=== PATIENT | male | born 1985 | race Caucasian/White ===

== ENCOUNTER 2017-12-23 19:43 | Emergency (ER) | payer OTHER ==
[2017-12-23 19:49] VITALS: BMI 25.0
--- NOTE | 2017-12-23 19:49 | PDOC ---
Rapid Medical Evaluation Chief Complaint: Nausea/Vomiting Time Seen by Provider: 12/23/17 19:45 Medical Evaluation: Allergies Allergy/AdvReac Type Severity Reaction Status Date / Time No Known Allergies Allergy Verified 07/22/16 08:13 I have performed a brief in-person evaluation of this patient. The patient presents with a chief complaint of: sore throat, vomiting, diarrhea since this morning. Pertinent physical exam findings: none I have ordered the following: rapid strep, influenza The patient will proceed to the ED for further evaluation.
--- NOTE | 2017-12-23 20:23 | PDOC ---
History of Present Illness - General History Source: Patient Exam Limitations: No Limitations - History of Present Illness Initial Comments: 12/23/17 21:13 The patient is a 32 year old male with no significant PMH who presents to the emergency department complaining of constant episodes of nausea and vomiting today. The patient reports that he first began to feel an onset of a sore throat earlier today accompanied by vomiting, diarrhea, and stomach pain. The patient works as a manager of construction and reports that he was at work earlier today when he started to experience these symptoms. The patient reports associated subjective fever,ear pain and, productive cough . The patient reports that he took ibuprofen about 3 hours ago in an attempt to alleviate his symptoms. The patient reports that he feels weak. The patient denies any chest pain, shortness of breath, or headache . The patient denies any chills. The patient denies any urinary symptoms. The patient denies any other complaints. <Melony Corral - Last Filed: 12/23/17 21:13> <Lizbeth Waite - Last Filed: 12/24/17 15:49> - General Chief Complaint: Nausea/Vomiting Stated Complaint: fever/sorethroat/diarrhea/vomiting Time Seen by Provider: 12/23/17 19:45 Past History <Melony Corral - Last Filed: 12/23/17 21:13> - Past Medical History COPD: No Psychiatric Problems: Yes (anxiety and panic attacks.) - Suicide/Smoking/Psychosocial Hx Smoking Status: No Smoking History: Never smoked Have you smoked in the past 12 months: Yes Number of Cigarettes Smoked Daily: 5 Information on smoking cessation initiated: No Hx Alcohol Use: No Drug/Substance Use Hx: No Substance Use Type: None <Lizbeth Waite - Last Filed: 12/24/17 15:49> - Past Medical History Allergies/Adverse Reactions: Allergies Allergy/AdvReac Type Severity Reaction Status Date / Time No Known Allergies Allergy Verified 12/23/17 19:49 Home Medications: Ambulatory Orders NK [No Known Home Medication] 07/22/16 Review of Systems - Review of Systems Able to Perform ROS?: Yes Comments:: 12/23/17 21:13 General: (+)fever, weakness. No chills. No weight loss HEENT: (+)sore throat, ear pain. No change in vision. CardioVascular: No chest pain or shortness of breath Respiratory:(+)cough. No wheezing. Gastrointestinal: (+)nausea,vomiting, diarrhea, epigastric pain. No constipation, No rectal bleeding Genitourinary: No dysuria, hematuria, or frequency Musculoskeletal: No joint or muscle pain or swelling Neurologic: No headache, vertigo, dizziness or loss of consciousness Psychiatric: nor depression Skin: No rashes or easy bruising Endocrine: no increased thirst or abnormal weight change Allergic: no skin or latex allergy All other systems reviewed and normal <Melony Corral - Last Filed: 12/23/17 21:13> *Physical Exam - Vital Signs Last Vital Signs Temp Pulse Resp BP Pulse Ox 98.7 F 94 H 16 123/76 100 12/23/17 19:46 12/23/17 19:46 12/23/17 19:46 12/23/17 19:46 12/23/17 19:46 - Physical Exam Comments: 12/23/17 21:13 General: Well-nourished well-developed individual, no acute distress HEENT: Throat: (+)vesicles on top of palate. Tonsils normal, no erythema or exudate Neck: Supple, no meningeal signs, no lymphadenopathy Eyes::(+)Conjunctivitis. Pupils equal reactive and round, extraocular motion intact Chest: Nontender to palpation Cardiac: S1-S2 normal, regular rate and rhythm, no murmurs rubs or gallops Respiratory: Lungs clear to auscultation bilateral Abdomen: (+)epigastric tenderness with pain on palpation of right lower quadrant. Soft, nondistended, normal bowel sounds. Extremities: Warm, dry, no cyanosis, clubbing, or edema Skin: No rashes Neuro: Alert and oriented x3, nonfocal exam, grossly intact, normal gait Psych: Normal mood and affect <Melony Corral - Last Filed: 12/23/17 21:13> - Vital Signs Last Vital Signs Temp Pulse Resp BP Pulse Ox 98.7 F 94 H 16 123/76 100 12/23/17 19:46 12/23/17 19:46 12/23/17 19:46 12/23/17 19:46 12/23/17 19:46 <Lizbeth Waite - Last Filed: 12/24/17 15:49> ED Treatment Course - ADDITIONAL ORDERS Additional order review: 12/23/17 19:50 Influenza Types A,B Antigen (SHARON) - Final Nasopharyngeal Swab - Final 12/23/17 19:50 Group A Strep Rapid Antigen - Final Throat <Melony Corral - Last Filed: 12/23/17 21:13> - LABORATORY CBC & Chemistry Diagram: 12/23/17 21:00 12/23/17 21:00 - ADDITIONAL ORDERS Additional order review: 12/23/17 19:50 Group A Strep Rapid Antigen - Final Throat <Lizbeth Waite - Last Filed: 12/24/17 15:49> Medical Decision Making - Medical Decision Making 12/23/17 22:20 A portion of this note was documented by scribe services under my direction. I have reviewed the details of the note, within reason, and agree with the documentation with the following case summary and management plan written by me. Patient is a 32-year-old male with no past medical history presenting department today with 1 day of fever, vomiting, sore throat. On exam patient with epigastric pain as well as right lower quadrant pain, positive obturator and psoas signs. Palate of the mouth also with vesicular like lesions. Rapid strep and flu are negative at this time. Patient will require IV fluids, labs, anti-emetics and further workup for his abdominal pain. We'll transfer from fast track to maintain ED at this time. Patient is stable for transfer. Case discussed with LILY Merida and charge nurse Reza. <Lizbeth Waite - Last Filed: 12/24/17 15:49> *DC/Admit/Observation/Transfer - Attestations Scribe Attestion: 12/23/17 21:14 Documentation prepared by Melony Corral, acting as medical billing coordinator for Emergency Dept,PhysicianMD. <Melony Corral - Last Filed: 12/23/17 21:13> <Lizbeth Waite - Last Filed: 12/24/17 15:49> Diagnosis at time of Disposition: Abdominal pain Qualifiers: Abdominal location: unspecified location Qualified Code(s): R10.9 - Unspecified abdominal pain - Discharge Dispostion Disposition: HOME Condition at time of disposition: Stable - Referrals Referrals: Danielle Cat MD [Primary Care Provider] - Ollie Beal MD [Staff Physician] - Ankur Bella MD, MD [Staff Physician] - - Patient Instructions Printed Discharge Instructions: DI for Abdominal Pain-Adult Additional Instructions: You must follow-up with a mayonnaise mixer. Your CAT scan of the abdomen and pelvis shows small bilateral lower lobe marked nodules are nonspecific but granulomatous disease and metastases of both consider comparison to a prior exam is recommended to evaluate for stability. You must also follow with her compugraph operator for your stomach pain Return back to the ER for severe/persistent or worsening symptoms - Post Discharge Activity Forms/Work/School Notes: Back to Work
[2017-12-23] MEDS ORDERED: SODIUM CHLORIDE 1,000 ML IV STA (20:52)
[2017-12-23] MEDS ORDERED: ONDANSETRON 4 MG/2 ML VIAL IVPUSH ONE (21:12)
[2017-12-23] MEDS ORDERED: ONDANSETRON 4 MG/2 ML VIAL ONE (21:15)
[2017-12-23 21:40] LABS: BASO % 0.1 % (0-2.0); EOS % 3.4 % (0-4.5); HEMATOCRIT 40.6 % (35.4-49); HEMOGLOBIN 14.5 GM/dL (11.7-16.9); LYMPH % 14.5 % (8-40); MCH 31.3 pg (25.7-33.7); MCHC 35.7 g/dl (32.0-35.9); MEAN CELL VOLUME 87.5 fl (80-96); MEAN PLT VOLUME 8.8 fl (7.5-11.1); MONO % 7.3 % (3.8-10.2); NEUT % 74.7 % (42.8-82.8); PLATELET COUNT 49 K/MM3 (134-434); RBC 4.64 M/mm3 (4.00-5.60); RDW 13.8 % (11.9-15.9); WHITE BLOOD COUNT 7.1 K/mm3 (4.0-10.0)
[2017-12-23 21:51] LABS: INR 1.07 (0.82-1.09); PROTHROMBIN TIME (PATIENT) 12.1 SEC (9.7-13.0)
[2017-12-23 21:54] LABS: URINE APPEARANCE CLEAR; URINE BILIRUBIN NEGATIVE (<2.0 mg/dL); URINE BLOOD 2+ (NEGATIVE); URINE COLOR YELLOW; URINE GLUCOSE (UA) NEGATIVE (NEGATIVE); URINE KETONE TRACE (NEGATIVE); URINE LEUK ESTERASE NEGATIVE (NEGATIVE); URINE NITRITE NEGATIVE (NEGATIVE); URINE PROTEIN NEGATIVE (NEGATIVE); URINE UROBILINOGEN NEGATIVE mg/dL (0.2-1.0)
[2017-12-23 22:05] LABS: ALBUMIN 3.8 g/dl (3.4-5.0); ALK PHOS 113 U/L (45-117); ANION GAP 6 (8-16); BLOOD UREA NITROGEN 16 mg/dL (7-18); CALCIUM 8.2 mg/dL (8.5-10.1); CHLORIDE 104 mmol/L (98-107); CO2 25 mmol/L (21-32); CREATININE 0.8 mg/dL (0.7-1.3); GLUCOSE,RANDOM 85 mg/dL (74-106); POTASSIUM 3.9 mmol/L (3.5-5.1); SGOT/AST 22 U/L (15-37); SGPT/ALT 22 U/L (12-78); SODIUM 135 mmol/L (136-145); TOT PROT 8.8 g/dl (6.4-8.2)
--- NOTE | 2017-12-23 22:10 | PDOC ---
History of Present Illness - General Chief Complaint: Nausea/Vomiting Stated Complaint: fever/sorethroat/diarrhea/vomiting Time Seen by Provider: 12/23/17 19:45 History Source: Patient - History of Present Illness Initial Comments: 12/23/17 22:09 Best Contact:[phone] PCP:Dr. Cristy Cat Pmhx: None Pshx:None Allergies:NKDA Social History: 4-5 cigarettes/d for 12 years/ occasional etoh 32-year-old male presents to the emergency department complaining of sore throat when he awoke this morning at approximately 0900 hrs. The patient didn't experience some RLQ/RUQ abdominal discomfort with nausea and 2 bouts of vomiting that were nonbloody and nonbilious since approximately 1400 hrs. today with subjective fever, right ear discomfort and a productive cough. Pain is described as 3/10 dull nonradiating intermittent discomfort. Patient denies any alleviating or exacerbating factors. Patient states he took 2 tabs of ibuprofen at approximately 1400 hrs. with some relief. Patient denies chills, headache, dizziness, lightheadedness, facial pains, neck pain/stiffness, back pains, chest pain, shortness of breath, urinary symptoms: Frequency/urgency/hesitancy, hematuria. Patient denies similar previous similar symptoms. Past History - Past Medical History Allergies/Adverse Reactions: Allergies Allergy/AdvReac Type Severity Reaction Status Date / Time No Known Allergies Allergy Verified 12/23/17 19:49 Home Medications: Ambulatory Orders NK [No Known Home Medication] 07/22/16 COPD: No Psychiatric Problems: Yes (anxiety and panic attacks.) - Suicide/Smoking/Psychosocial Hx Smoking Status: No Smoking History: Never smoked Have you smoked in the past 12 months: Yes Number of Cigarettes Smoked Daily: 5 Information on smoking cessation initiated: No Hx Alcohol Use: No Drug/Substance Use Hx: No Substance Use Type: None Review of Systems - Review of Systems Able to Perform ROS?: Yes Comments:: 12/23/17 23:30 CONSTITUTIONAL: Absent: fever, chills, diaphoresis, generalized weakness, malaise, loss of appetite HEENT: +throat pain, right earache Absent: rhinorrhea, nasal congestion, throat swelling, difficulty swallowing, mouth swelling, ear pain, eye pain, visual Changes CARDIOVASCULAR: Absent: chest pain, loss of consciousness, palpitations, irregular heart rate, peripheral edema RESPIRATORY: Absent: cough, shortness of breath, dyspnea with exertion, orthopnea, wheezing, stridor, hemoptysis GASTROINTESTINAL: +RUQ/RLQ pain Absent: abdominal distension, nausea, vomiting, diarrhea, constipation, melena, hematochezia GENITOURINARY: Absent: dysuria, frequency, urgency, hesitancy, hematuria, flank pain, genital pain MUSCULOSKELETAL: Absent: myalgia, arthralgia, joint swelling SKIN: Absent: rash, itching, pallor HEMATOLOGIC/IMMUNOLOGIC: Absent: easy bleeding, easy bruising, lymphadenopathy, frequent infections ENDOCRINE: Absent: unexplained weight gain, unexplained weight loss, heat intolerance, cold intolerance Is the patient limited [place] Islander proficient: No *Physical Exam - Vital Signs Last Vital Signs Temp Pulse Resp BP Pulse Ox 98.7 F 94 H 16 123/76 100 12/23/17 19:46 12/23/17 19:46 12/23/17 19:46 12/23/17 19:46 12/23/17 19:46 - Physical Exam Comments: 12/23/17 23:32 GENERAL: Well developed, well nourished. Awake and alert. No acute distress. HEENT: Normocephalic, atraumatic. PERRLA, EOMI. No conjunctival pallor. Sclera are non- icteric. Moist mucous membranes. Oropharynx is clear. NECK: Supple. Full ROM. No JVD. Carotid pulses 2+ and symmetric, without bruits. No thyromegaly. No lymphadenopathy. CARDIOVASCULAR: Regular rate and rhythm. No murmurs, rubs, or gallops. Distal pulses are 2+ and symmetric. PULMONARY: No evidence of respiratory distress. Lungs clear to auscultation bilaterally. No wheezing, rales or rhonchi. ABDOMINAL: +RLQ pain/RUQ pain Soft. Non-distended. No rebound or guarding. No organomegaly. Normoactive bowel sounds. MUSCULOSKELETAL Normal range of motion at all joints. No bony deformities or tenderness. No CVA tenderness. EXTREMITIES: No cyanosis. No clubbing. No edema. No calf tenderness. SKIN: Warm and dry. Normal capillary refill. No rashes. No jaundice. NEUROLOGICAL: Alert, awake, appropriate. Cranial nerves 2-12 intact. No deficits to light touch and temperature in face, upper extremities and lower extremities. No motor deficits in the in face, upper extremities and lower extremities. Normoreflexic in the upper and lower extremities. Normal speech. Toes are down- going bilaterally. Gait is normal without ataxia. 12/23/17 23:33 ED Treatment Course - LABORATORY CBC & Chemistry Diagram: 12/23/17 21:00 12/23/17 21:00 - ADDITIONAL ORDERS Additional order review: Laboratory Results 12/23/17 12/23/17 12/23/17 21:00 21:00 21:00 Sodium 135 L Potassium 3.9 Chloride 104 Carbon Dioxide 25 Anion Gap 6 L BUN 16 D Creatinine 0.8 Creat Clearance w eGFR > 60 Random Glucose 85 Calcium 8.2 L Total Bilirubin 1.0 D AST 22 ALT 22 Alkaline Phosphatase 113 D Total Protein 8.8 H Albumin 3.8 Lipase 136 Urine Color Yellow Urine Appearance Clear Urine pH 6.0 Ur Specific Arion 1.020 Urine Protein Negative Urine Glucose (UA) Negative Urine Ketones Trace H Urine Blood 2+ H Urine Nitrite Negative Urine Bilirubin Negative Urine Urobilinogen Negative Ur Leukocyte Esterase Negative Urine WBC (Auto) 1 Urine RBC (Auto) 4 12/23/17 19:50 Influenza Types A,B Antigen (SHARON) - Final Nasopharyngeal Swab - Final 12/23/17 19:50 Group A Strep Rapid Antigen - Final Throat 12/23/17 21:00 RBC 4.64 MCV 87.5 MCHC 35.7 RDW 13.8 MPV 8.8 Neutrophils % 74.7 Lymphocytes % 14.5 D Monocytes % 7.3 Eosinophils % 3.4 D Basophils % 0.1 - RADIOLOGY Radiograph Interpretation: 12/23/17 23:33 CAT scan of the abdomen and pelvis by mouth/IV contrast: Mild splenomegaly. Small bilateral lower lobe nodules are nonspecific but granulomatous disease and metastases are both considered and comparison to a prior exam is recommended to evaluate for stability. Possible diarrheal illness. - Medications Given in the ED: ED Medications Discontinued Medications Generic Name Dose Route Start Last Admin Trade Name Freq PRN Reason Stop Dose Admin Sodium Chloride 1,000 mls @ 1,000 mls/hr 12/23/17 20:52 12/23/17 21:25 Normal Saline - IV 12/23/17 21:51 1,000 mls/hr ASDIR STA Administration Ondansetron HCl 4 mg 12/23/17 21:12 12/23/17 21:25 Zofran Injection IVPUSH 12/23/17 21:13 4 mg ONCE ONE Administration *DC/Admit/Observation/Transfer Diagnosis at time of Disposition: Abdominal pain Qualifiers: Abdominal location: unspecified location Qualified Code(s): R10.9 - Unspecified abdominal pain - Discharge Dispostion Disposition: HOME Condition at time of disposition: Stable Admit: No - Referrals Referrals: Danielle Cat MD [Primary Care Provider] - Ollie Beal MD [Staff Physician] - Ankur Bella MD, MD [Staff Physician] - - Patient Instructions Printed Discharge Instructions: DI for Abdominal Pain-Adult Additional Instructions: You must follow-up with a autism motor specialist. Your CAT scan of the abdomen and pelvis shows small bilateral lower lobe marked nodules are nonspecific but granulomatous disease and metastases of both consider comparison to a prior exam is recommended to evaluate for stability. You must also follow with her wiping cloth cutter for your stomach pain Return back to the ER for severe/persistent or worsening symptoms - Post Discharge Activity Forms/Work/School Notes: Back to Work Progress Note - Progress Note Progress Note: 2201hrs: Started PO Contrast
[2017-12-24 01:21] VITALS: BP 113/60; PULSE 72; TEMP 98.6
== END 2017-12-24 01:41 | disposition home or self-care (01) ==
LOC: JER 19:43 → JERFT 19:43 → JER 12-24 01:41
PROC: 3E0337Z Introduction of Electrolytic and Water Balance Substance into Peripheral Vein, Percutaneous Approach (ICD-10-PCS; principal; 2017-12-23)
PROC: 3E033GC Introduction of Other Therapeutic Substance into Peripheral Vein, Percutaneous Approach (ICD-10-PCS; 2017-12-23)
DX: R10.9 Unspecified abdominal pain (principal)
CPT/HCPCS: 36415; 74177-TC; 80053; 81003; 81015; 83690; 85025; 85610; 87070; 87086; 87430; 87804; 96361; 96374; 99282-25; J7030

== ENCOUNTER 2018-01-13 08:10 | Day surgery (SDC) | payer OTHER ==
[2018-01-13 09:06] VITALS: BMI 25.4
[2018-01-13] MEDS ORDERED: PROPOFOL 20 ML ONE ×2 (09:53)
[2018-01-13] MEDS ORDERED: LIDOCAINE HCL/PF 2% SDV 5ML VIAL ONE (09:54)
--- NOTE | 2018-01-13 09:56 | PROC ---
Endoscopy Procedure Endoscopy procedure completed. Please see scanned procedure report.
[2018-01-13 10:51] VITALS: TEMP 98.2
[2018-01-13 13:01] VITALS: BP 101/65; PULSE 60
--- NOTE | 2018-01-14 15:59 | PATH ---
Surgical Pathology Report Patient Name: BARTOLOME ESTRADA [facility]. Rec. #: [id number] /Age/Gender: 1985 (Age: 32) / M Account: [id number] Location: U-ENDOSCOPY Taken: 01/13/2018 Received: 01/13/2018 Reported: 01/14/2018 Physicians: Ollie Beal M.D. Specimen(s) Received A: BX DUODENUM SECOND PORTION B: BX ANTRUM C: BX OF FUNDUS D: BX TERMINAL ILEUM E: BX ASCENDING COLON F: BX TRANSVERSE COLON G: BX DESCENDING COLON H: BX SIGMOID COLON I: BX RECTUM Clinical History Abdominal pain Postoperative diagnosis: Gastritis, abdominal pain, diarrhea, rule out IBD, colitis Final Diagnosis A. DUODENUM, SECOND PORTION, BIOPSY: DUODENAL MUCOSA WITH MILD CHRONIC DUODENITIS. B. ANTRUM, BIOPSY: GASTRIC MUCOSA WITH ACTIVE CHRONIC INFLAMMATION. 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 C. FUNGUS, BIOPSY: GASTRIC MUCOSA WITH ACTIVE CHRONIC INFLAMMATION AND LYMPHOID FOLLICLES. 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 D. TERMINAL ILEUM, BIOPSY: TERMINAL ILEUM MUCOSA WITH NO DIAGNOSTIC ABNORMALITIES. E. ASCENDING COLON, BIOPSY: COLONIC MUCOSA WITH MILD CHRONIC INFLAMMATION AND LYMPHOID AGGREGATES. F. TRANSVERSE COLON, BIOPSY: COLONIC MUCOSA WITH NO DIAGNOSTIC ABNORMALITIES. G. DESCENDING COLON, BIOPSY: COLONIC MUCOSA WITH REACTIVE LYMPHOID AGGREGATES. H. SIGMOID COLON, BIOPSY: COLONIC MUCOSA WITH ACTIVE LYMPHOID AGGREGATES. I. RECTUM, BIOPSY: COLONIC MUCOSA WITH ACTIVE LYMPHOID AGGREGATES. Electronically Signed Stevan Roca M.D. Gross Description A. Received in formalin, labeled "biopsy second portion of duodenum" are 2 don, irregular portions of soft tissue measuring 0.3 and 0.4 cm. in greatest dimension. The specimens are submitted in toto in one cassette. B. Received in formalin, labeled "biopsy antrum" are 2 don, irregular portions of soft tissue measuring 0.3 and 0.5 cm. in greatest dimension. The specimens are submitted in toto in one cassette. C. Received in formalin, labeled "biopsy fundus" are 3 don, irregular portions of soft tissue averaging 0.2 cm. in greatest dimension. The specimens are submitted in toto in one cassette. D. Received in formalin, labeled "biopsy terminal ileum" are 2 don, irregular portions of soft tissue averaging 0.3 cm. in greatest dimension. The specimens are submitted in toto in one cassette. E. Received in formalin, labeled "biopsy ascending colon" are 2 don, irregular portions of soft tissue measuring 0.4 and 0.5 cm. in greatest dimension. The specimens are submitted in toto in one cassette. F. Received in formalin, labeled "biopsy transverse colon" are 4 don, irregular portions of soft tissue ranging from 0.3-0.7 cm. in greatest dimension. The specimens are submitted in toto in one cassette. G. Received in formalin, labeled "biopsy descending colon" are 2 don, irregular portions of soft tissue measuring 0.4 and 1.0 cm. in greatest dimension. The specimens are submitted in toto in one cassette. H. Received in formalin, labeled "biopsy sigmoid colon" are 3 don, irregular portions of soft tissue ranging from 0.2-0.5 cm. in greatest dimension. The specimens are submitted in toto in one cassette. I. Received in formalin, labeled "biopsy rectum" are 4 don, irregular portions of soft tissue ranging from 0.2-0.4 cm. in greatest dimension. The specimens are submitted in toto in one cassette. 01/13/2018 [facility]01/13/2018
== END 2018-01-13 12:00 | disposition home or self-care (01) ==
LOC: JASU-ENDO 08:10
PROVIDERS: ATTEND Internal Medicine Gastroenterology
PROC: 0DB68ZX Excision of Stomach, Via Natural or Artificial Opening Endoscopic, Diagnostic (ICD-10-PCS; 2018-01-13)
PROC: 0DBP8ZX Excision of Rectum, Via Natural or Artificial Opening Endoscopic, Diagnostic (ICD-10-PCS; 2018-01-13)
PROC: 0DBN8ZX Excision of Sigmoid Colon, Via Natural or Artificial Opening Endoscopic, Diagnostic (ICD-10-PCS; 2018-01-13)
PROC: 0DB98ZX Excision of Duodenum, Via Natural or Artificial Opening Endoscopic, Diagnostic (ICD-10-PCS; principal; 2018-01-13 09:45)
DX: K52.9 Noninfective gastroenteritis and colitis, unspecified (principal); K29.80 Duodenitis without bleeding; B96.81 Helicobacter pylori [H. pylori] as the cause of diseases classified elsewhere; K29.60 Other gastritis without bleeding
CPT/HCPCS: 88305-TC; 88342-TC

== ENCOUNTER 2018-04-14 07:30 | Inpatient (IN) | payer OTHER ==
[2018-04-14] MEDS ORDERED: SODIUM CHLORIDE 1,000 ML IV STA (08:11)
--- NOTE | 2018-04-14 08:12 | PDOC ---
History of Present Illness - General Chief Complaint: Pain Stated Complaint: FEVER,BODY PAIN,HEADACHE Time Seen by Provider: 04/14/18 07:57 History Source: Patient Exam Limitations: No Limitations - History of Present Illness Initial Comments: 04/14/18 10:11 32m with pmh of gastritis presents to the ed with fever, cough, sore throat, 3 episodes of vomiting and lose stools as well as body aches for the past 2 weeks. Came back yesterday from [facility]. Was diagnosed there from a "throat infection" and was started on a week-long course of antibiotics that didn't resolve her symptoms. Past History - Past Medical History Allergies/Adverse Reactions: Allergies Allergy/AdvReac Type Severity Reaction Status Date / Time No Known Allergies Allergy Verified 04/14/18 07:32 Home Medications: Ambulatory Orders Omeprazole 20 mg PO DAILY 01/13/18 COPD: No Psychiatric Problems: Yes (anxiety and panic attacks.) - Suicide/Smoking/Psychosocial Hx Smoking Status: No Smoking History: Current every day smoker Have you smoked in the past 12 months: Yes Number of Cigarettes Smoked Daily: 3 If you are a former smoker, when did you quit?: 3 WEEKS AGO Information on smoking cessation initiated: Yes 'Breaking Loose' booklet given: 04/14/18 Hx Alcohol Use: No Drug/Substance Use Hx: No Substance Use Type: None Review of Systems - Review of Systems Able to Perform ROS?: Yes Is the patient limited Taiwanese proficient: No Constitutional: Yes: Fever, Loss of Appetite, Malaise HEENTM: Yes: See HPI Respiratory: No: Symptoms reported Cardiac (ROS): No: Symptoms Reported ABD/GI: Yes: See HPI : No: Symptoms Reported Musculoskeletal: Yes: See HPI Integumentary: No: Symptoms Reported Neurological: No: Symptoms reported All Other Systems: Reviewed and Negative *Physical Exam - Vital Signs Last Vital Signs Temp Pulse Resp BP Pulse Ox 99.5 F 81 18 105/59 100 04/14/18 07:33 04/14/18 07:33 04/14/18 07:33 04/14/18 07:33 04/14/18 07:33 - Physical Exam General Appearance: Yes: Nourished, Appropriately Dressed. No: Apparent Distress HEENT: positive: Rhinorrhea. negative: Pharyngeal Erythema, Tonsillar Exudate, Tonsillar Erythema Respiratory/Chest: positive: Lungs Clear, Normal Breath Sounds. negative: Chest Tender, Respiratory Distress Cardiovascular: positive: Regular Rhythm, Regular Rate, S1, S2 Gastrointestinal/Abdominal: positive: Normal Bowel Sounds, Flat, Soft. negative : Tender Musculoskeletal: positive: Normal Inspection. negative: CVA Tenderness Extremity: positive: Normal Capillary Refill, Normal Inspection, Normal Range of Motion Integumentary: positive: Normal Color, Dry, Warm Neurologic: positive: Fully Oriented, Alert, Normal Mood/Affect, Normal Response , Motor Strength 12/28 ED Treatment Course - LABORATORY CBC & Chemistry Diagram: 04/14/18 09:20 04/14/18 09:20 - RADIOLOGY Radiology Studies Ordered: Category Date Time Status CHEST PA & LAT [RAD] Stat Radiology 04/14/18 08:10 Ordered Medical Decision Making - Medical Decision Making 04/14/18 10:26 Chest xray pending. basic labs, blood smear, parasite blood exam and cultures pending. Will get ID consult, possible admission. 04/14/18 12:[address] Hammer who will come see the patient. Admitted to med surg under dr. Santiago *DC/Admit/Observation/Transfer Diagnosis at time of Disposition: Fever - Discharge Dispostion Decision to Admit order: Yes - Referrals Referrals: Danielle Cat MD [Primary Care Provider] - - Patient Instructions - Post Discharge Activity
[2018-04-14 09:29] LABS: BASO % 0.3 % (0-2.0); EOS % 0.4 % (0-4.5); HEMATOCRIT 40.1 % (35.4-49); HEMOGLOBIN 14.4 GM/dL (11.7-16.9); LYMPH % 46.8 % (8-40); MCHC 35.8 g/dl (32.0-35.9); MEAN CELL VOLUME 86.6 fl (80-96); MEAN PLT VOLUME 7.8 fl (7.5-11.1); MONO % 8.2 % (3.8-10.2); NEUT % 44.3 % (42.8-82.8); PLATELET COUNT 129 K/MM3 (134-434); RBC 4.63 M/mm3 (4.00-5.60); RDW 14.5 % (11.9-15.9); WHITE BLOOD COUNT 9.6 K/mm3 (4.0-10.0)
[2018-04-14] MEDS ORDERED: IBUPROFEN 800 MG/8 ML IJ IVPB ONE ×2 (09:32→09:37)
--- NOTE | 2018-04-14 09:45 | PDOC ---
Attending Attestation - HPI HPI: 04/14/18 09:54 The patient is a 32 year old male with no significant PMH presenting with fever , nonproductive cough, sore throat, generalized body aches, and diffuse headache for the past week. Patient states he went to [facility] for the past two weeks and returned yesterday. The patient reports she was seen at a clinic in [facility] and was prescribed antibiotics for 6 days for a throat infection. The patient admits to eating seafood and getting mosquito bites. Patient denies sick contact. The patient denies chest pain, shortness of breath, and dizziness. Denies fever, chills, nausea, vomit, diarrhea and constipation. Denies dysuria, frequency, urgency and hematuria. Allergies: NKA Past surgical history: None reported. Social history: No reported alcohol, drug, or cigarette use. PCP: Dr. Danielle Cat <Sonia Maurer - Last Filed: 04/14/18 09:54> - Resident Resident Name: Jamal Abreu - ED Attending Attestation I have performed the following: I have examined & evaluated the patient, The case was reviewed & discussed with the resident, I agree w/resident's findings & plan, Exceptions are as noted - Physicial Exam PE: GENERAL: Awake, alert, and fully oriented, in no acute distress. Appears ill but nontoxic. HEAD: No signs of trauma EYES: PERRLA, EOMI, sclera anicteric, conjunctiva clear ENT: Auricles normal inspection, hearing grossly normal, nares patent, oropharynx clear without exudates. Moist mucosa NECK: Normal ROM, supple, no lymphadenopathy, JVD, or masses LUNGS: Breath sounds equal, clear to auscultation bilaterally. No wheezes, and no crackles HEART: Regular rate and rhythm, normal S1 and S2, no murmurs, rubs or gallops ABDOMEN: Soft, nontender, normoactive bowel sounds. No guarding, no rebound. No masses EXTREMITIES: Normal range of motion, no edema. No clubbing or cyanosis. No cords, erythema, or tenderness NEUROLOGICAL: Cranial nerves II through XII grossly intact. Normal speech, normal gait SKIN: Dry, normal turgor, no rashes or lesions noted. +Tactile fever. - Medical Decision Making 04/14/18 09:41 Pt with fever s/p trip to [facility]. On abx that he was given there. +Cough at present, diarrhea previously. Will obtain UA, CXR, cultures. [facility] is no risk of malaria as per CDC website. DDx includes pna, hep A, dengue. <Erica Lazaro - Last Filed: 04/14/18 11:35>
[2018-04-14 09:49] LABS: ALBUMIN 2.9 g/dl (3.4-5.0); ANION GAP 9 (8-16); BLOOD UREA NITROGEN 9 mg/dL (7-18); CALCIUM 8.2 mg/dL (8.5-10.1); CHLORIDE 106 mmol/L (98-107); CO2 23 mmol/L (21-32); CREATININE 0.8 mg/dL (0.7-1.3); GLUCOSE,RANDOM 86 mg/dL (74-106); POTASSIUM 4.3 mmol/L (3.5-5.1); SGOT/AST 50 U/L (15-37); SGPT/ALT 43 U/L (12-78); SODIUM 138 mmol/L (136-145)
[2018-04-14 09:50] LABS: ALK PHOS 127 U/L (45-117); BILIRUBIN,TOTAL 0.5 mg/dL (0.2-1.0)
[2018-04-14 10:21] LABS: URINE APPEARANCE CLEAR; URINE BILIRUBIN NEGATIVE (<2.0 mg/dL); URINE COLOR YELLOW; URINE GLUCOSE (UA) NEGATIVE (NEGATIVE); URINE KETONE NEGATIVE (NEGATIVE); URINE LEUK ESTERASE NEGATIVE (NEGATIVE); URINE NITRITE NEGATIVE (NEGATIVE); URINE PROTEIN NEGATIVE (NEGATIVE)
[2018-04-14 10:36] LABS: EPI CELLS RARE /HPF (FEW); URINE MUCUS RARE
[2018-04-14 11:12] LABS: ACANTHOCYTES 0; ANISOCYTOSIS 0; HELMET CELLS 0; HOWELL-JOLLY BODIES 0; MACROCYTOSIS 0; OVALOCYTE 0; PLATELET ESTIMATE DECREASED; ROULEAU 0; SICKELED CELLS 0; TARGET CELLS 0; TEAR DROP CELLS 0; TOXIC GRANULATION 0
--- NOTE | 2018-04-14 13:31 | HP ---
Admitting History and Physical - Admission Chief Complaint: generalized body aches, fever, abdominal pain History of Present Illness: This is a 32 year old male with no pmhx. Pt was in [facility] for 5 weeks. For the last week he has been feeling generalized body aches, CHRISTIANSON, sore throat, cough , left sided abdominal pain and fever. In his last week in [facility] pt sought medical attention, was given antibiotics to which he said didn't really help. He landed yesterday and fever was high with rigors and sweating. Pt states he was bit by many mosquitos in [facility]. Denies itching, change in vision, nausea, vomiting, cp, sob. Right now he feels better after receiving medication. 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 History Source: Patient Limitations to Obtaining History: No Limitations - Smoking History Smoking history: Current every day smoker Have you smoked in the past 12 months: Yes Aproximately how many cigarettes per day: 3 If you are a former smoker, when did you quit?: 3 WEEKS AGO - Alcohol/Substance Use Hx Alcohol Use: No History of Substance Use: reports: None - Social History Usual Living Arrangement: Yes: With Significant Other ADL: Independent Occupation: construction History of Recent Travel: Yes ([facility] ) Home Medications - Allergies Allergies/Adverse Reactions: Allergies Allergy/AdvReac Type Severity Reaction Status Date / Time No Known Allergies Allergy Verified 04/14/18 07:32 - Home Medications Home Medications: Ambulatory Orders Omeprazole 20 mg PO DAILY 01/13/18 Review of Systems - Review of Systems Constitutional: reports: Chills, Diaphoresis, Fever, Lethargy, Night Sweats Eyes: reports: No Symptoms HENT: reports: Throat Pain Neck: reports: No Symptoms Cardiovascular: reports: No Symptoms Respiratory: reports: No Symptoms Gastrointestinal: reports: Abdominal Pain Genitourinary: reports: No Symptoms Musculoskeletal: reports: No Symptoms Integumentary: reports: No Symptoms Neurological: reports: No Symptoms Endocrine: reports: No Symptoms Hematology/Lymphatic: reports: No Symptoms Psychiatric: reports: No Symptoms Physical Examination Vital Signs: Vital Signs Temperature 99.5 F 04/14/18 07:33 Pulse Rate 81 04/14/18 07:33 Respiratory Rate 18 04/14/18 07:33 Blood Pressure 105/59 04/14/18 07:33 O2 Sat by Pulse Oximetry (%) 100 04/14/18 07:33 Constitutional: Yes: Calm Eyes: Yes: Conjunctiva Clear HENT: Yes: Atraumatic Neck: Yes: Supple Cardiovascular: Yes: Regular Rate and Rhythm, S1, S2 Respiratory: Yes: Regular, CTA Bilaterally Gastrointestinal: Yes: Normal Bowel Sounds, Soft Musculoskeletal: Yes: WNL Edema: No Integumentary: Yes: WNL Neurological: Yes: Alert, Oriented, Cran Nerves II-XII Intact ...Motor Strength: WNL Psychiatric: Yes: Alert, Oriented Labs: CBC, BMP 04/14/18 09:20 04/14/18 09:20 Imaging - Results Chest X-ray: Report Reviewed, Image Reviewed Problem List - Problems (1) Fever Code(s): R50.9 - FEVER, UNSPECIFIED Assessment/Plan Assessment: 32 year old male admitted with fever, diffuse body aches, CHRISTIANSON, abdominal pain x1 week. Plan: 1. Fever - Rule out infectious cause vs viral - Blood parasite neg - Babesia sent - Send HIV, viral panel, influenza - Start gentle hydration - ID consulted 2. L sided abdominal pain - Elevated AST, alk phos - Obtain abdominal us 3. Thrombocytopenia - Improved from previous visit - Possible d/t infectious cause - Trend 4. Smoking - Consider patch Visit type - Emergency Visit Emergency Visit: Yes ED Registration Date: 04/14/18 Care time: The patient presented to the Emergency Department on the above date and was hospitalized for further evaluation of their emergent condition. - New Patient This patient is new to me today: Yes Date on this admission: 04/14/18 - Critical Care Critical Care patient: No Hospitalist Screening - Colonoscopy Questionnaire Colonoscopy Questionnaire: Colonoscopy Questionnaire - Patient: 50 - 75 years old and never had a screening colonoscopy: No History of colon or rectal polyps, or CA: Unknown History of IBD, Crohn's disease or UC: Unknown History of abdominal radiation therapy as a child: Unknown - Relative: 1 with colon or rectal CA, or polyps at age 60 or younger: Unknown Colon or rectal CA diagnosed at age 45 or younger: Unknown Multiple relatives with colon or rectal CA: Unknown - Outcome: Screening Result: Negative Screen
[2018-04-14] MEDS: SODIUM CHLORIDE 1,000 ML IV SCH (14:35)
--- NOTE | 2018-04-14 16:22 | PN ---
Progress Note (short form) - Note Progress Note: ID consult dictated imp/reccd 32 year old man with several month history of abdominal pain- had egd and colonoscopy with GI and was diagnosed with H pylori- treated went to [facility] 5 weeks back to stay with family on a farm + mosquito bites + farm animals- not involved in any butchering of animals or handling of raw meat 5 days back developed sore throat and fevers with myalgia/chills +nonproductive cough no rash intermittent diarrhea currently no abdominal pain cxray no infiltrate pe well appearing young man notable for no rash, no adenopathy, no pharyngitis ?HSM fevers- ?viral ?salmonella blood cultures malaria smear- done and negative rocephin dengue and monospot ordered HIV ordered (reports one partner) zika serology ordered chikagunya serology to be obtained agree with sonogram of the abdomen
[2018-04-14] MEDS: CEFTRIAXONE 1 GM in DEXTROSE 5%-WATER - 50 ML IVPB SCH (17:06)
[2018-04-14] MEDS ORDERED: CEFTRIAXONE 1 GM/50 ML BAG ONE ×2 (17:10→17:12)
--- NOTE | 2018-04-14 18:50 | CONS ---
INFECTIOUS DISEASE CONSULTATION DATE OF CONSULTATION: 04/14/2018 REQUESTING PHYSICIAN: Hospitalist service. This is a 32-year-old man who presents with fever for the last 4-5 days. He gives a 3-month history of intermittent abdominal pain for which he underwent a workup with Dr. Beal. He had upper and lower endoscopy. He was positive for H. pylori, and he was treated. His abdominal pain improved. He went to [facility] 5 weeks ago to visit his family. He stayed on a farm with them. He had multiple mosquito bites. He was not involved in any butchering or carrying of sick animals or handling of any raw meats. Five days back, he developed a sore throat and fevers with myalgia and chills. He had a nonproductive cough. No rash. Intermittent diarrhea and no abdominal pain. He went to a doctor in [facility], was given antibiotics which he took. [place], wanted to go to work but woke up and had fever with myalgia and was unable to go to work; so, he came to the emergency room. PAST MEDICAL HISTORY: Notable for this history of this H. pylori recent and he has had no surgery. On CAT scan, he reports he was found to have 2 small nodules, saw a speed belt sander, and was told that there was nothing to worry about. MEDICATIONS: He takes omeprazole at home. ALLERGIES: He has no known drug allergies. SOCIAL HISTORY: [place] in the [place] has been here for 14 years. He has a girlfriend and a child. 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 He does not drink alcohol. There is no history of any substance use. He is monogamous. He has only 1 partner, and he is an active cigarette smoker. REVIEW OF SYSTEMS: Notable for intermittent cough, nonproductive. He has no headache. He has no photophobia or neck stiffness. Abdominal pain is resolved. He currently has no diarrhea, though he reports he has had intermittent diarrhea. He has no skin rash. He denies any history of tuberculosis. He has been in this country for 14 years PHYSICAL EXAMINATION: General: He is currently well appearing. Vital Signs: Temperature is 99. Pulse of 55. T-max was 100.9. Blood pressure is 114/76, respiratory rate of 20, saturating 99% on room air. HEENT: He is normocephalic. His eyes are anicteric. He has no pharyngitis. Neck: Supple. He has no adenopathy, either cervical or axillary. Lungs: Clear to auscultation. Heart: Regular rate and rhythm. Abdomen: Soft. Question whether he has hepatosplenomegaly. Extremities: Without edema. LABORATORY DATA: Labs are notable for a white count of 9.6, platelets of 129. Though looking back earlier this year, platelet count was actually much lower and was 49,000. His BUN is 9 and creatinine 0.8. LFTs are notable for an AST of 50 and an alkaline phosphatase of 127. Urinalysis had 1 white cell. He had a malaria smear that was negative, blood cultures that are pending, a chest x-ray that is normal as well. In summary, this is a 32-year-old man admitted with 4-5 day history of fever with myalgias and chills, nonproductive cough, no rash, intermittent diarrhea. Question whether it is viral or possibly could be salmonella. Blood cultures are pending. Malaria smear was done and is negative. We will treat him with ceftriaxone. Dengue and Monospot have been ordered. serology has been ordered as well given the mosquito exposure, though he has no conjunctivitis. Will obtain chikungunya serology and would agree with sonogram of the abdomen at this time. Further recommendations to follow. Case was discussed with the hospitalist. SAROJ BASURTO M.D. KEVIN/[id number]
[2018-04-15 07:25] LABS: BASO % 0.1 % (0-2.0); EOS % 0.4 % (0-4.5); HEMATOCRIT 45.8 % (35.4-49); HEMOGLOBIN 15.9 GM/dL (11.7-16.9); LYMPH % 28.7 % (8-40); MCH 30.4 pg (25.7-33.7); MCHC 34.8 g/dl (32.0-35.9); MEAN CELL VOLUME 87.3 fl (80-96); NEUT % 60.8 % (42.8-82.8); PLATELET COUNT 140 K/MM3 (134-434); RBC 5.25 M/mm3 (4.00-5.60); RDW 14.5 % (11.9-15.9); WHITE BLOOD COUNT 9.7 K/mm3 (4.0-10.0)
[2018-04-15 07:55] LABS: INR 1.13 (0.83-1.09); PROTHROMBIN TIME (PATIENT) 12.8 SEC (9.7-13.0)
[2018-04-15 08:30] LABS: ANION GAP 7 (8-16); BLOOD UREA NITROGEN 8 mg/dL (7-18); CALCIUM 8.3 mg/dL (8.5-10.1); CHLORIDE 103 mmol/L (98-107); CO2 27 mmol/L (21-32); CREATININE 0.8 mg/dL (0.7-1.3); GLUCOSE,RANDOM 78 mg/dL (74-106); MAGNESIUM 1.8 mg/dL (1.8-2.4); PHOSPHOROUS 3.3 mg/dL (2.5-4.9); POTASSIUM 4.1 mmol/L (3.5-5.1); SGOT/AST 53 U/L (15-37); SGPT/ALT 50 U/L (12-78); SODIUM 137 mmol/L (136-145)
[2018-04-15 08:33] LABS: ALK PHOS 145 U/L (45-117); BILIRUBIN,TOTAL 0.7 mg/dL (0.2-1.0); TOT PROT 8.5 g/dl (6.4-8.2)
[2018-04-15] MEDS ORDERED: CEFTRIAXONE 1 GM/50 ML BAG ONE (09:07)
[2018-04-15] MEDS: CEFTRIAXONE 1 GM in DEXTROSE 5%-WATER - 50 ML IVPB SCH (10:05)
[2018-04-15] MEDS: SODIUM CHLORIDE 1,000 ML IV SCH ×2 (14:45→22:40)
--- NOTE | 2018-04-15 15:50 | PN ---
Progress Note (short form) - Note Progress Note: still with fevers but overall fells better cough improved no rigors Vital Signs Period Temp Pulse Resp BP Sys/Branch Pulse Ox Last 24 Hr 98.7 F-102.0 F 76-84 16-20 116-137/74-82 99-99 no adenopathy no rash cor-rrr lungs clear abd soft,nt ext no edema CBC, BMP 04/15/18 06:45 04/15/18 06:45 Microbiology 04/14/18 19:10 Nasopharyngeal Swab Respiratory Virus (PCR) - Preliminary 04/14/18 10:10 Blood - Peripheral Venous Blood Culture - Preliminary NO GROWTH OBTAINED AFTER 24 HOURS, INCUBATION TO CONTINUE FOR 4 DAYS. 04/14/18 10:10 Blood - Peripheral Venous Blood Culture - Preliminary NO GROWTH OBTAINED AFTER 24 HOURS, INCUBATION TO CONTINUE FOR 4 DAYS. 04/14/18 10:10 Urine - Urine Clean Catch Urine Culture - Final NO GROWTH OBTAINED 04/14/18 19:10 Nasopharyngeal Swab Influenza Types A,B Antigen - Final 04/14/18 19:10 Nasopharyngeal Swab - Final 04/14/18 09:20 Blood - Peripheral Venous Blood Parasites Smear - Final Laboratory Tests 04/15/18 04/15/18 01:39 06:45 Monoscreen Negative HIV 1&2 Antibody Screen Preliminary positive a/p FUO-no leukopenia or thrombocytopenia HSM ?HIV blood cultures malaria smear- done and negative rocephin dengue pending HIV prelim ordered zika serology ordered hiv viral load pending check cd4 count, LDH, hep panel ebv serology, cmv serology if he remains febrile would obtain ct scan abd/pelvis in am
--- NOTE | 2018-04-15 16:08 | PN ---
Physical Exam: SUBJECTIVE: Patient seen and examined. PT states he is feeling much better, christianson less, body aches less, still w/ llq pain. Current temp 102 rectally OBJECTIVE: Vital Signs Period Temp Pulse Resp BP Sys/Branch Pulse Ox Last 24 Hr 98.7 F-102.0 F 76-84 16-20 116-137/74-82 99-99 PE Neuro: alert, awake, cn 2-12intact Pulm: CTAB CV: s1 s2 rrr Abd: llq mild tenderness + bs, non distended Ext: no le edema Laboratory Results - last 24 hr 04/15/18 04/15/18 04/15/18 01:39 06:45 06:45 WBC 9.7 RBC 5.25 Hgb 15.9 Hct 45.8 MCV 87.3 MCH 30.4 MCHC 34.8 RDW 14.5 Plt Count 140 MPV 8.0 Absolute Neuts (auto) 5.9 Neutrophils % 60.8 D Lymphocytes % 28.7 D Monocytes % 10.0 Eosinophils % 0.4 Basophils % 0.1 Nucleated RBC % 0 PT with INR INR Sodium 137 Potassium 4.1 Chloride 103 Carbon Dioxide 27 Anion Gap 7 L BUN 8 Creatinine 0.8 Creat Clearance w eGFR > 60 Random Glucose 78 Calcium 8.3 L Phosphorus 3.3 Magnesium 1.8 Total Bilirubin 0.7 AST 53 H ALT 50 Alkaline Phosphatase 145 H D Total Protein 8.5 H Albumin 3.0 L Monoscreen HIV 1&2 Antibody Screen Preliminary positive HIV P24 Antigen Negative 04/15/18 04/15/18 06:45 06:45 WBC RBC Hgb Hct MCV MCH MCHC RDW Plt Count MPV Absolute Neuts (auto) Neutrophils % Lymphocytes % Monocytes % Eosinophils % Basophils % Nucleated RBC % PT with INR 12.80 INR 1.13 H Sodium Potassium Chloride Carbon Dioxide Anion Gap BUN Creatinine Creat Clearance w eGFR Random Glucose Calcium Phosphorus Magnesium Total Bilirubin AST ALT Alkaline Phosphatase Total Protein Albumin Monoscreen Negative HIV 1&2 Antibody Screen HIV P24 Antigen Active Medications Generic Name Dose Route Start Last Admin Trade Name Freq PRN Reason Stop Dose Admin Sodium Chloride 1,000 mls @ 83 mls/hr 04/14/18 14:30 04/15/18 14:45 Normal Saline - IV 83 mls/hr ASDIR [place]OLINA Administration Ceftriaxone Sodium 1 gm/ 50 mls @ 100 mls/hr 04/14/18 16:30 04/15/18 10:05 Dextrose IVPB 100 mls/hr DAILY CAR[place]INA Administration Protocol Assessment: 32 year old male admitted with fever, diffuse body aches, CHRISTIANSON, abdominal pain x1 week. Plan: 1. Fever - Rule out infectious cause vs viral - Pending HIV pcr, cd4, LDH, hep panel, hep c, ebv, cmv - Pending Babesia, dengue, zika - Cont ceftriaxone - Cont gentle hydration - ID consult appreciated 2. Reverse a/g ratio - Send immunofixations, immunoglobulins - Heme to see 3. L sided abdominal pain - Abd US with hepatosplenomegaly - CTAP from 12/2017 shows mild hepatospleomegaly along with thrombocytopenia - Due to ?viral process - Hep levels ordered - Obtain CTAP 4. Thrombocytopenia - WNL today - Possible due to HIV? 5. Smoking - Consider patch Problem List - Problems (1) Fever Code(s): R50.9 - FEVER, UNSPECIFIED Visit type - Emergency Visit Emergency Visit: Yes ED Registration Date: 04/14/18 Care time: The patient presented to the Emergency Department on the above date and was hospitalized for further evaluation of their emergent condition. - New Patient This patient is new to me today: No - Critical Care Critical Care patient: No
[2018-04-15] MEDS ORDERED: ACETAMINOPHEN 325 MG TABLET (FP) PO ONE (23:45)
[2018-04-16] MEDS ORDERED: DEXTROSE 5%-WATER - 50 ML IVPB ONE (09:09)
[2018-04-16] MEDS ORDERED: cefTRIAXone SODIUM 1 GM VIAL ONE (09:09)
[2018-04-16] MEDS: SODIUM CHLORIDE 1,000 ML IV SCH ×2 (09:13→16:48)
[2018-04-16] MEDS: CEFTRIAXONE 1 GM in DEXTROSE 5%-WATER - 50 ML IVPB SCH (09:13)
--- NOTE | 2018-04-16 14:48 | PN ---
Progress Note (short form) - Note Progress Note: feels improved still with fevers but trending down no nausea no GI symptoms no rash Vital Signs Period Temp Pulse Resp BP Sys/Branch Pulse Ox Last 24 Hr 98.6 F-101.6 F 62-79 18-20 103-130/56-79 99-99 cor-rrr llungs clear abd soft,+HSM ext no edema CBC, BMP 04/15/18 06:45 Laboratory Tests 04/15/18 04/15/18 01:39 06:45 Monoscreen Negative HIV 1&2 Antibody Screen Preliminary positive Microbiology 04/14/18 10:10 Blood - Peripheral Venous Blood Culture - Preliminary NO GROWTH OBTAINED AFTER 48 HOURS, INCUBATION TO CONTINUE FOR 3 DAYS. 04/14/18 10:10 Blood - Peripheral Venous Blood Culture - Preliminary NO GROWTH OBTAINED AFTER 48 HOURS, INCUBATION TO CONTINUE FOR 3 DAYS. 04/14/18 19:10 Nasopharyngeal Swab Respiratory Virus (PCR) - Preliminary 04/14/18 10:10 Urine - Urine Clean Catch Urine Culture - Final NO GROWTH OBTAINED 04/14/18 19:10 Nasopharyngeal Swab Influenza Types A,B Antigen - Final 04/14/18 19:10 Nasopharyngeal Swab - Final 04/14/18 09:20 Blood - Peripheral Venous Blood Parasites Smear - Final a/p FUO-no leukopenia or thrombocytopenia, no rash HSM ?HIV still awatig confirmation of HIV blood cultures malaria smear- done and negative rocephin dengue pending zika pending hiv viral load pending check cd4 count, LDH, hep panel ebv serology, cmv serology ?of new pulmonary nodule will repeat chest CT histoplasma antigen qfever/brucella serology quantiferon
--- NOTE | 2018-04-16 15:37 | PN ---
Physical Exam: SUBJECTIVE: Patient seen and examined. He has no complaints. He denies abdominal pain, nausea, vomiting, diarrhea, cough, headache, chills. Had temp 101.6 last night, 100.0 this morning. OBJECTIVE: Vital Signs Period Temp Pulse Resp BP Sys/Branch Pulse Ox Last 24 Hr 98.6 F-101.6 F 62-79 18-20 103-130/56-79 99-99 GENERAL: The patient is awake, alert, and fully oriented, in no acute distress. LUNGS: Breath sounds equal, clear to auscultation bilaterally, no wheezes, no crackles, no accessory muscle use. HEART: Regular rate and rhythm, S1, S2 without murmur, rub or gallop. ABDOMEN: Soft, nontender, nondistended, normoactive bowel sounds, no guarding, no rebound, no hepatosplenomegaly, no masses. EXTREMITIES: 2+ pulses, warm, well-perfused, no edema. Laboratory Results - last 24 hr 04/16/18 07:35 LD Total 315 H Active Medications Generic Name Dose Route Start Last Admin Trade Name Freq PRN Reason Stop Dose Admin Sodium Chloride 1,000 mls @ 83 mls/hr 04/14/18 14:30 04/16/18 09:13 Normal Saline - IV 83 mls/hr ASDIR [place]OL[place] Administration ASSESSMENT/PLAN: This is a 32 year old man who presented to the ED with fever, body aches, headache, and abdominal pain x 1 week. 1. Fever, possible HIV - HIV Ab preliminary positive; P24 Ag negative; 4th gen Ag/Ab, viral load, CD4 pending - [place] negative - Babesia, Dengue, Hep A, Hep B, Hep C, EBV, CMV, Zika pending 2. Hepatosplenomegaly 3. Thrombocytopenia - Improved 4. Nicotine dependence - Smoking cessation discussed Visit type - Emergency Visit Emergency Visit: Yes ED Registration Date: 04/14/18 Care time: The patient presented to the Emergency Department on the above date and was hospitalized for further evaluation of their emergent condition. - New Patient This patient is new to me today: Yes Date on this admission: 04/16/18 - Critical Care Critical Care patient: No - Discharge Referral Referred to [facility] No
--- NOTE | 2018-04-16 16:52 | CONSULT ---
Consult Consult Specialty:: Hematology- oncology Referred by:: Hospitalist Reason for Consultation:: Hepatosplenomegaly - History of Present Illness Chief Complaint: Fever, genralized weakness, hepatospenomegaly - History Source History Provided By: Patient, Medical Record Limitations to Obtaining History: Language Barrier - Alcohol/Substance Use Hx Alcohol Use: No History of Substance Use: reports: None - Smoking History Smoking history: Current every day smoker Have you smoked in the past 12 months: Yes Aproximately how many cigarettes per day: 3 If you are a former smoker, when did you quit?: 3 WEEKS AGO - Social History ADL: Independent Occupation: construction Place of : Other ([employer] [employer]) History of Recent Travel: Yes ([facility] ) Home Medications - Allergies Allergies/Adverse Reactions: Allergies Allergy/AdvReac Type Severity Reaction Status Date / Time No Known Allergies Allergy Verified 04/14/18 14:36 - Home Medications Home Medications: Ambulatory Orders NK [No Known Home Medication] 04/15/18 Family Disease History - Family Disease History Family Disease History: Diabetes: Father, Other: Mother (breast and abdominal surgery ? reason) Review of Systems - Review of Systems Constitutional: reports: Fever, Malaise, Weakness. denies: Night Sweats, Unintentional Wgt. Loss Eyes: denies: Double Vision HENT: denies: Difficult Swallowing, Epistaxis, Throat Pain, Other Neck: denies: Lumps, Swollen Glands Cardiovascular: denies: Chest Pain, Shortness of Breath Respiratory: reports: Cough. denies: SOB on Exertion Gastrointestinal: reports: Abdominal Pain, Diarrhea, Other (LOUQ pain). denies : Nausea, Vomiting Genitourinary: reports: No Symptoms. denies: Dysuria, Frequency Musculoskeletal: denies: Crepitus, Extremity Pain Integumentary: reports: No Symptoms Neurological: reports: No Symptoms Endocrine: reports: No Symptoms Hematology/Lymphatic: reports: No Symptoms Psychiatric: reports: No Symptoms Physical Exam Vital Signs: Vital Signs Temperature 100.0 F H 04/16/18 14:40 Pulse Rate 67 04/16/18 14:40 Respiratory Rate 20 04/16/18 14:40 Blood Pressure 120/60 04/16/18 14:40 O2 Sat by Pulse Oximetry (%) 99 04/16/18 09:00 Constitutional: Yes: Well Nourished, No Distress, Calm Eyes: Yes: WNL, PERRL. No: Diplopia, Ptosis, Sclera Icterus HENT: Yes: Normocephalic. No: Hoarseness, Thrush Neck: Yes: Supple, Other (1.5 cm moveable left axillary node). No: Lymphadenopathy, Thyromegaly Cardiovascular: Yes: Regular Rate and Rhythm Respiratory: Yes: Regular, CTA Bilaterally Gastrointestinal: Yes: Normal Bowel Sounds, Hepatomegaly, Splenomegaly, Other. No: Distention Renal/: Yes: Other (righinguinal node' testes descended , uncircumcisedt). No : CVA Tenderness - Left, CVA Tenderness - Right Musculoskeletal: No: Back Pain, Muscle Pain Extremities: Yes: WNL Edema: No Integumentary: Yes: WNL Neurological: Yes: WNL ...Motor Strength: WNL Psychiatric: Yes: WNL Labs: CBC, BMP 04/15/18 06:45 Imaging - Results Cat Scan: Report Reviewed Problem List - Problems (1) Abdominal pain Assessment/Plan: Hepatosplenomegaly--> ? etiology Has moveable left axillary adenopathy and small right inguinal node Plan for sono and depending on morpholgy and size .? biopsy. Patient has seen Dr. Emile Kaur in past. Contacted him. Last seen in 2015. At that time platelets 40K-50K and diagnosis of ITP. Had faint band IgG kappa monoclonal kappa light chains and elevated IgM- [place] /phyllis light chains elevated No mention or studies at that time for hepatosplenomegaly. Code(s): R10.9 - UNSPECIFIED ABDOMINAL PAIN Qualifiers: Abdominal location: unspecified location Qualified Code(s): R10.9 - Unspecified abdominal pain (2) Lung nodules Assessment/Plan: For CT imaging and evaluation Code(s): R91.8 - OTHER NONSPECIFIC ABNORMAL FINDING OF LUNG FIELD (3) Hepatosplenomegaly Assessment/Plan: Not previously described. ?? related to dysproteinemia Code(s): R16.2 - HEPATOMEGALY WITH SPLENOMEGALY, NOT ELSEWHERE CLASSIFIED
[2018-04-16] MEDS: ACETAMINOPHEN 325 MG TABLET (FP) PO PRN (23:00)
[2018-04-17 00:07] LABS: BABESIA MICROTI ANTIBODY IGG <1:10 (Neg:<1:10); BABESIA MICROTI ANTIBODY IGM <1:10 (Neg:<1:10)
[2018-04-17] MEDS: SODIUM CHLORIDE 1,000 ML IV SCH ×2 (01:46→19:36)
[2018-04-17 08:06] LABS: CMV IgM < 30.0 AU/mL (0.0-29.9)
[2018-04-17 09:05] LABS: EOS % 0.6 % (0-4.5); HEMATOCRIT 41.6 % (35.4-49); HEMOGLOBIN 14.4 GM/dL (11.7-16.9); LYMPH % 32.5 % (8-40); MCH 30.1 pg (25.7-33.7); MCHC 34.7 g/dl (32.0-35.9); MEAN CELL VOLUME 86.9 fl (80-96); MEAN PLT VOLUME 7.8 fl (7.5-11.1); MONO % 11.1 % (3.8-10.2); NEUT % 55.8 % (42.8-82.8); PLATELET COUNT 154 K/MM3 (134-434); RBC 4.79 M/mm3 (4.00-5.60); RDW 14.3 % (11.9-15.9)
[2018-04-17 09:37] LABS: ALBUMIN 2.9 g/dl (3.4-5.0); ANION GAP 8 MMOL/L (8-16); BILIRUBIN,DIRECT 0.2 mg/dL (0.0-0.2); BLOOD UREA NITROGEN 7 mg/dL (7-18); CALCIUM 8.2 mg/dL (8.5-10.1); CHLORIDE 104 mmol/L (98-107); CO2 25 mmol/L (21-32); GLUCOSE,RANDOM 84 mg/dL (74-106); POTASSIUM 4.3 mmol/L (3.5-5.1); SGOT/AST 42 U/L (15-37); SGPT/ALT 40 U/L (12-78); SODIUM 137 mmol/L (136-145)
[2018-04-17 09:40] LABS: ALK PHOS 133 U/L (45-117); BILIRUBIN,TOTAL 0.5 mg/dL (0.2-1.0); CREATININE 0.8 mg/dL (0.7-1.3); LDH 340 U/L (87-241); TOT PROT 8.6 g/dl (6.4-8.2)
--- NOTE | 2018-04-17 10:07 | PN ---
Physical Exam: SUBJECTIVE: Patient denies any shortness of breath or chest pain. States he feels better since starting the antibiotics. Had fever overnight of 102.9, low grade this morning. OBJECTIVE: HIV antibody reactive other immunology labs pending hx of ITP Patient informed of his HIV status by ID specialist Dr. Costa. Patient informed of treatment options as well as family support via the [facility]. He is seeking treatment options. Vital Signs Period Temp Pulse Resp BP Sys/Branch Pulse Ox Last 24 Hr 98.9 F-102.9 F 62-85 18-20 120-139/60-75 GENERAL: The patient is awake, alert, and fully oriented, in no acute distress. HEAD: Normal with no signs of trauma. EYES: PERRL, extraocular movements intact, sclera anicteric, conjunctiva clear. No ptosis. ENT: Ears normal, nares patent, oropharynx clear without exudates, moist mucous membranes. NECK: Trachea midline, full range of motion, supple. ABDOMEN: Soft, nontender, nondistended, normoactive bowel sounds, no guarding, no rebound, no hepatosplenomegaly, no masses. NEUROLOGICAL:Normal speech, gait not observed. PSYCH: Normal mood, normal affect. SKIN: Warm, dry, normal turgor, no rashes or lesions noted Laboratory Results - last 24 hr 04/14/18 04/15/18 04/15/18 12:40 01:39 20:33 WBC RBC Hgb Hct MCV MCH MCHC RDW Plt Count MPV Absolute Neuts (auto) Neutrophils % Lymphocytes % Monocytes % Eosinophils % Basophils % Nucleated RBC % Sodium Potassium Chloride Carbon Dioxide Anion Gap BUN Creatinine Creat Clearance w eGFR Random Glucose Calcium Total Bilirubin Direct Bilirubin AST ALT Alkaline Phosphatase LD Total Total Protein Albumin Huite-0-Nlysulqwt (%) Cancelled Sbwif-6-Ogdtvosto (%) Cancelled Beta Globulins (%) Cancelled Gamma Globulins (%) Cancelled M-Aldo % Cancelled Babesia microti IgG Ab <1:10 Babesia microti IgM Ab <1:10 CMV IgG Ab CMV IgM Ab HIV-1 Antibody Positive H HIV-2 Antibody Negative HIV 1&2 Ag/Ab, 4th Gen Reactive H HIV Note Hiv-1 positive Ref Test Comments Cancelled 04/16/18 04/16/18 04/17/18 07:35 07:35 08:15 WBC 8.0 RBC 4.79 Hgb 14.4 Hct 41.6 MCV 86.9 MCH 30.1 MCHC 34.7 RDW 14.3 Plt Count 154 MPV 7.8 Absolute Neuts (auto) 4.5 Neutrophils % 55.8 Lymphocytes % 32.5 Monocytes % 11.1 H Eosinophils % 0.6 Basophils % 0.0 Nucleated RBC % 0 Sodium Potassium Chloride Carbon Dioxide Anion Gap BUN Creatinine Creat Clearance w eGFR Random Glucose Calcium Total Bilirubin Direct Bilirubin AST ALT Alkaline Phosphatase LD Total 315 H Total Protein Albumin Bkhfv-2-Eljjzzhel (%) Ikbrn-3-Rmkjcqkpx (%) Beta Globulins (%) Gamma Globulins (%) M-Aldo % Babesia microti IgG Ab Babesia microti IgM Ab CMV IgG Ab > 10.00 H CMV IgM Ab < 30.0 HIV-1 Antibody HIV-2 Antibody HIV 1&2 Ag/Ab, 4th Gen HIV Note Ref Test Comments 04/17/18 08:15 WBC RBC Hgb Hct MCV MCH MCHC RDW Plt Count MPV Absolute Neuts (auto) Neutrophils % Lymphocytes % Monocytes % Eosinophils % Basophils % Nucleated RBC % Sodium 137 Potassium 4.3 Chloride 104 Carbon Dioxide 25 Anion Gap 8 BUN 7 Creatinine 0.8 Creat Clearance w eGFR > 60 Random Glucose 84 Calcium 8.2 L Total Bilirubin 0.5 Direct Bilirubin 0.2 AST 42 H D ALT 40 Alkaline Phosphatase 133 H D LD Total 340 H Total Protein 8.6 H Albumin 2.9 L Aezww-1-Xbmxuujul (%) Dayjk-3-Uovqktisq (%) Beta Globulins (%) Gamma Globulins (%) M-Aldo % Babesia microti IgG Ab Babesia microti IgM Ab CMV IgG Ab CMV IgM Ab HIV-1 Antibody HIV-2 Antibody HIV 1&2 Ag/Ab, 4th Gen HIV Note Ref Test Comments Active Medications Generic Name Dose Route Start Last Admin Trade Name Freq PRN Reason Stop Dose Admin Acetaminophen 650 mg 04/16/18 22:46 04/16/18 23:00 Tylenol - PO 650 mg Q6H PRN Administration FEVER Sodium Chloride 1,000 mls @ 83 mls/hr 04/14/18 14:30 04/17/18 01:46 Normal Saline - IV 83 mls/hr ASDIR CAROLINA Administration ASSESSMENT/PLAN: Patient is a 32 year old male with a significant past medical history of ITP. Patient comes to the ED with c/o of generalized body aches, CHRISTIANSON, sore throat, cough, left sided abdominal pain and fever. He was reported to be in [facility] x 5 weeks and comes to the ED after being there with rigors and profuse diaphoresis. He states he has often has night sweats. ID: Fever on admission, found to have +hiv 1 antibody: Febrile overnight @ 102.9. HIV 1 shows positive antibody, pending hep panel, hep c, viral panel (babesia, dengue, hep, ebv, cmv, zika pending). Ceftriaxone discontinued. Pt informed of HIV status. GI: Hepatospenomegaly, acute Likely secondary to HIV 1. Heme: ITP history Platelets stable Pulm: Pulmonary nodules seen on imaging. CT scan of chest pending. Will need outpatient follow up. Pulm consulted. fen tolerating PO, stop IVF monitor electrolytes regular diet prophy ambulatory Visit type - Emergency Visit Emergency Visit: Yes ED Registration Date: 04/14/18 Care time: The patient presented to the Emergency Department on the above date and was hospitalized for further evaluation of their emergent condition. - New Patient This patient is new to me today: Yes Date on this admission: 04/17/18 - Critical Care Critical Care patient: No - Discharge Referral Referred to [facility] Med P.C.: No
--- NOTE | 2018-04-17 16:26 | PN ---
Progress Note (short form) - Note Progress Note: feels improved, myalgias resolved still with fevers but trending down Vital Signs Period Temp Pulse Resp BP Sys/Branch Pulse Ox Last 24 Hr 98.8 F-102.9 F 62-85 18-20 119-139/62-75 no exam Laboratory Tests 04/15/18 04/15/18 04/15/18 01:39 01:39 06:45 Absolute CD4 [place] Monoscreen Negative HIV-1 Antibody Positive H HIV-2 Antibody Negative HIV 1&2 Ag/Ab, 4th Gen Reactive H HIV Note Hiv-1 positive HIV 1&2 Antibody Screen Preliminary positive 04/16/18 07:35 Absolute CD4 [place] 356 L Monoscreen HIV-1 Antibody HIV-2 Antibody HIV 1&2 Ag/Ab, 4th Gen HIV Note HIV 1&2 Antibody Screen a/p FUO-f/u chest ct HSM HIV positive-d/w patient at length all questions answered will refer to [facility] in am f/u chest ct- may need pulmonary input ?lymph node biopsy if fevers persist d/w hospitalist
[2018-04-18 00:11] LABS: ZIKA VIRUS SER. Negative (Negative); ZIKA VIRUS UR. Negative (Negative)
[2018-04-18 00:12] LABS: EPSTEIN BARR ANTIBODY IgM <36.0 U/mL (0.0-35.9)
[2018-04-18] MEDS: ACETAMINOPHEN 325 MG TABLET (FP) PO PRN ×3 (02:10→21:57)
[2018-04-18] MEDS: SODIUM CHLORIDE 1,000 ML IV SCH ×2 (02:10→16:01)
[2018-04-18 07:56] LABS: BASO % 0.1 % (0-2.0); EOS % 0.8 % (0-4.5); HEMATOCRIT 41.2 % (35.4-49); HEMOGLOBIN 14.2 GM/dL (11.7-16.9); LYMPH % 30.7 % (8-40); MCH 30.9 pg (25.7-33.7); MCHC 34.6 g/dl (32.0-35.9); MEAN CELL VOLUME 89.2 fl (80-96); MEAN PLT VOLUME 7.9 fl (7.5-11.1); MONO % 12.9 % (3.8-10.2); NEUT % 55.5 % (42.8-82.8); PLATELET COUNT 159 K/MM3 (134-434); RBC 4.61 M/mm3 (4.00-5.60)
[2018-04-18 08:06] LABS: IGA IMMUNOGLOBULIN 197 mg/dL (90-386); IGG IMMUNOGLOBULIN 1985 mg/dL (700-1600); IGM IMMUNOGLOBULIN 804 mg/dL (20-172)
[2018-04-18 08:06] LABS: IGA IMMUNOGLOBULIN 222 mg/dL (90-386); IGG IMMUNOGLOBULIN 2215 mg/dL (700-1600); IGM IMMUNOGLOBULIN 899 mg/dL (20-172)
[2018-04-18 08:43] LABS: ALBUMIN 2.7 g/dl (3.4-5.0); ANION GAP 5 MMOL/L (8-16); BLOOD UREA NITROGEN 5 mg/dL (7-18); CALCIUM 8.1 mg/dL (8.5-10.1); CHLORIDE 104 mmol/L (98-107); CO2 28 mmol/L (21-32); GLUCOSE,RANDOM 84 mg/dL (74-106); SODIUM 137 mmol/L (136-145)
[2018-04-18 08:47] LABS: ALK PHOS 132 U/L (45-117); BILIRUBIN,TOTAL 0.5 mg/dL (0.2-1.0); CREATININE 0.8 mg/dL (0.7-1.3); SGPT/ALT 42 U/L (12-78); TOT PROT 8.1 g/dl (6.4-8.2)
[2018-04-18 09:01] LABS: POTASSIUM 4.7 mmol/L (3.5-5.1); SGOT/AST 52 U/L (15-37)
--- NOTE | 2018-04-18 13:52 | CON.PULM ---
Consult Consult Specialty:: PULMONARY Referred by:: MIRELLA Reason for Consultation:: LUNG NODULE - History of Present Illness Chief Complaint: MINOR COUGH/SCANT SPUTUM History of Present Illness: This is a 32 year old male with no pmhx. Pt was in [facility] for 5 weeks. For the last week he has been feeling generalized body aches, CHRISTIANSON, sore throat, cough , left sided abdominal pain and fever. In his last week in [facility] pt sought medical attention, was given antibiotics to which he said didn't really help. He landed yesterday and fever was high with rigors and sweating. Pt states he was bit by many mosquitos in [facility]. Denies itching, change in vision, nausea, vomiting, cp, sob. Right now he feels better after receiving medication. 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 - History Source History Provided By: Patient, Medical Record Limitations to Obtaining History: No Limitations - Past Medical History CAD ADMINISTRATOR: No: Alzheimer's Cardio/Vascular: No: AFIB Pulmonary: No: Asthma Gastrointestinal: No: Ascites Hepatobiliary: No: Cirrhosis Renal/: No: Renal Failure Heme/Onc: No: Anemia Infectious Disease: Yes: HIV (newly diagnosed) Psych: No: Addictions Musculoskeletal: No: Bursitis Rheumatology: No: Fibromyalgia ENT: No: Allergic Rhinitis Endocrine: No: Jonathan's Disease, Diabetes Mellitus - Past Surgical History Past Surgical History: Yes: None - Alcohol/Substance Use Hx Alcohol Use: No History of Substance Use: reports: None - Smoking History Smoking history: Current every day smoker Have you smoked in the past 12 months: Yes Aproximately how many cigarettes per day: 3 If you are a former smoker, when did you quit?: 3 WEEKS AGO - Social History ADL: Independent Occupation: construction Place of : Other History of Recent Travel: Yes ([facility] ) Home Medications - Allergies Allergies/Adverse Reactions: Allergies Allergy/AdvReac Type Severity Reaction Status Date / Time No Known Allergies Allergy Verified 04/14/18 14:36 - Home Medications Home Medications: Ambulatory Orders NK [No Known Home Medication] 04/15/18 Family Disease History - Family Disease History Family Disease History: Diabetes: Father, Other: Mother (breast and abdominal surgery ? reason) Review of Systems - Review of Systems Constitutional: reports: Diaphoresis, Fever, Lethargy, Loss of Appetite, Unintentional Wgt. Loss, Weakness Eyes: denies: Blind Spots HENT: denies: Difficult Swallowing Neck: denies: Decreased ROM Cardiovascular: denies: Chest Pain Respiratory: reports: Cough Gastrointestinal: reports: Abdominal Pain, Bloating Genitourinary: denies: Burning Breasts: reports: No Symptoms Reported Musculoskeletal: reports: Back Pain, Extremity Pain, Muscle Cramps Integumentary: reports: No Symptoms Neurological: reports: No Symptoms Endocrine: reports: Excessive Sweating Hematology/Lymphatic: reports: No Symptoms Psychiatric: reports: No Symptoms Physical Exam Vital Sings: Vital Signs Temperature 98.9 F 04/18/18 10:30 Pulse Rate 77 04/18/18 10:30 Respiratory Rate 18 04/18/18 10:30 Blood Pressure 118/68 04/18/18 10:30 O2 Sat by Pulse Oximetry (%) 98 04/18/18 10:30 Constitutional: Yes: Calm Eyes: Yes: EOM Intact HENT: Yes: Normocephalic Neck: Yes: Trachea Midline Cardiovascular: Yes: Regular Rate and Rhythm Respiratory: Yes: CTA Bilaterally Gastrointestinal: Yes: Hepatomegaly, Splenomegaly Edema: No Integumentary: Yes: WNL Neurological: Yes: Alert ...Motor Strength: WNL Psychiatric: Yes: WNL Labs: CBC, BMP 04/18/18 07:10 04/18/18 07:10 serology reviewed rest of blood work reviewed Imaging - Results Chest X-ray: Report Reviewed, Image Reviewed Cat Scan: Report Reviewed, Image Reviewed Problem List - Problems (1) HIV (human immunodeficiency virus infection) Code(s): B20 - HUMAN IMMUNODEFICIENCY VIRUS [HIV] DISEASE (2) Fever Code(s): R50.9 - FEVER, UNSPECIFIED (3) Hepatosplenomegaly Code(s): R16.2 - HEPATOMEGALY WITH SPLENOMEGALY, NOT ELSEWHERE CLASSIFIED (4) Lung nodules Code(s): R91.8 - OTHER NONSPECIFIC ABNORMAL FINDING OF LUNG FIELD (5) Abdominal pain Code(s): R10.9 - UNSPECIFIED ABDOMINAL PAIN Qualifiers: Abdominal location: unspecified location Qualified Code(s): R10.9 - Unspecified abdominal pain Assessment/Plan RIGHT BASE LUNG NODULE IN NEWLY DIAGNOSED HIV PATIENT FEVER/WGT LOSS/ABD PAIN/MAY ALL BE DUE TO ACUTE HIV INFECTION WOULD TREAT HIV INFECTION PER ID WOULD OPT FOR AN OUTPATIENT PET SCAN TO FURTHER EVALUATE RIGHT BASE NODULE OFFICIAL REPORT OF CT CHEST STILL PENDING FROM YESTERDAY RIGHT BASE NODULE CAN CLEARLY BE SEEN ON CT ABD WILL FOLLOW Fredi MONREAL MD
--- NOTE | 2018-04-18 14:25 | PN ---
Physical Exam: SUBJECTIVE: Patient seen and examined. Pt states he has fevers but the body aches are gone, where before he had fever and body aches OBJECTIVE: Vital Signs Period Temp Pulse Resp BP Sys/Branch Pulse Ox Last 24 Hr 98.8 F-101.5 F 62-80 18-20 118-131/62-81 98-99 PE Neuro: alert, awake, cn 2-12intact Pulm: CTAB CV: s1 s2 rrr Abd: llq mild tenderness + bs, non distended Ext: no le edema Laboratory Results - last 24 hr 04/15/18 04/16/18 04/17/18 20:33 07:35 08:15 WBC RBC Hgb Hct MCV MCH MCHC RDW Plt Count MPV Absolute Neuts (auto) Neutrophils % Lymphocytes % Monocytes % Eosinophils % Basophils % Nucleated RBC % Sodium Potassium Chloride Carbon Dioxide Anion Gap BUN Creatinine Creat Clearance w eGFR Random Glucose Calcium Magnesium Total Bilirubin AST ALT Alkaline Phosphatase Total Protein Albumin Wteuj-3-Czypqcjjo (%) Cancelled Jaavk-6-Iqzbqwobw (%) Cancelled Beta Globulins (%) Cancelled Gamma Globulins (%) Cancelled M-Aldo % Cancelled IgG 1985 H 2215 H IgA 197 222 IgM 804 H 899 H EBV IgG Ab >600.0 H EBV IgM Ab <36.0 EBV Nuclear Antigen 76.5 H Ref Test Comments Cancelled 04/18/18 04/18/18 07:10 07:10 WBC 6.0 RBC 4.61 Hgb 14.2 Hct 41.2 MCV 89.2 MCH 30.9 MCHC 34.6 RDW 14.0 Plt Count 159 MPV 7.9 Absolute Neuts (auto) 3.3 Neutrophils % 55.5 Lymphocytes % 30.7 Monocytes % 12.9 H Eosinophils % 0.8 Basophils % 0.1 D Nucleated RBC % 0 Sodium 137 Potassium 4.7 Chloride 104 Carbon Dioxide 28 Anion Gap 5 L BUN 5 L Creatinine 0.8 Creat Clearance w eGFR > 60 Random Glucose 84 Calcium 8.1 L Magnesium 2.0 Total Bilirubin 0.5 AST 52 H D ALT 42 Alkaline Phosphatase 132 H Total Protein 8.1 Albumin 2.7 L Uxhnh-4-Qgzvsldhf (%) Tqwvr-9-Iygrgxvnm (%) Beta Globulins (%) Gamma Globulins (%) M-Aldo % IgG IgA IgM EBV IgG Ab EBV IgM Ab EBV Nuclear Antigen Ref Test Comments Active Medications Generic Name Dose Route Start Last Admin Trade Name Santiq PRN Reason Stop Dose Admin Acetaminophen 650 mg 04/16/18 22:46 04/18/18 02:10 Tylenol - PO 650 mg Q6H PRN Administration FEVER Sodium Chloride 1,000 mls @ 83 mls/hr 04/14/18 14:30 04/18/18 02:10 Normal Saline - IV 83 mls/hr ASDIR CAROLINA Administration Assessment: 32 year old male admitted with fever, diffuse body aches, CHRISTIANSON, abdominal pain x1 week. Plan: 1. HIV - [facility] referral, defer to ID 2. Fever - Persistent - Off abx - ID seeing 3. R base lung nodule - Outpt PET scan - CT official read pending - Pulm note reviewed 4. Disproteinemia - immunofixations, immunoglobulins pending 5. Hepatosplenomegaly, Thrombocytopenia - CTAP from 12/2017 shows mild hepatospleomegaly along with thrombocytopenia - Per heme, no HSM seen in 06/2016 - Hx of ITP, now with HIV 6. Left inguinal node - US noted - ? biopsy if fevers persist - Will need to discuss with ariel, had seen Dr Zee in past 06/2016 Problem List - Problems (1) Fever Code(s): R50.9 - FEVER, UNSPECIFIED Visit type - Emergency Visit Emergency Visit: Yes ED Registration Date: 04/14/18 Care time: The patient presented to the Emergency Department on the above date and was hospitalized for further evaluation of their emergent condition. - New Patient This patient is new to me today: No - Critical Care Critical Care patient: No
--- NOTE | 2018-04-18 15:42 | PN ---
Progress Note (short form) - Note Progress Note: feels improved, myalgias resolved still with fevers Vital Signs Period Temp Pulse Resp BP Sys/Branch Pulse Ox Last 24 Hr 98.9 F-102.1 F 62-80 18-20 118-131/68-81 98-99 cor-rrr lungs clear abd soft,nt ext no edema no rash no conjunctivitis CBC, BMP 04/18/18 07:10 04/18/18 07:10 Microbiology 04/14/18 19:10 Nasopharyngeal Swab Respiratory Virus (PCR) - Final 04/14/18 10:10 Blood - Peripheral Venous Blood Culture - Preliminary NO GROWTH OBTAINED AFTER 96 HOURS, INCUBATION TO CONTINUE FOR 1 DAYS. 04/14/18 10:10 Blood - Peripheral Venous Blood Culture - Preliminary NO GROWTH OBTAINED AFTER 96 HOURS, INCUBATION TO CONTINUE FOR 1 DAYS. 04/14/18 10:10 Urine - Urine Clean Catch Urine Culture - Final NO GROWTH OBTAINED 04/14/18 19:10 Nasopharyngeal Swab Influenza Types A,B Antigen - Final 04/14/18 19:10 Nasopharyngeal Swab - Final 04/14/18 09:20 Blood - Peripheral Venous Blood Parasites Smear - Final a/p FUO-with HSM, recent travel to [facility] HIV positive- this is not an acute seroconversion- he is antibody positive- d/w patient at length all questions answered seen by [facility] SW significant other referred for outpt testing serologies pending repeat blood cultures off antibiotics esr/crp/ferritin crypt and histo antigen f/u quant ?LN biopsy check [place] and [place] serology
[2018-04-18 16:32] LABS: FREE KAPPA,SERUM 111.7 mg/L (3.3-19.4)
--- NOTE | 2018-04-18 17:35 | PN ---
Progress Note (short form) - Note Progress Note: Patient seen and examined Mild LUQ pain Last Vital Signs Temp Pulse Resp BP Pulse Ox 102.1 F H 79 20 130/74 98 04/18/18 14:41 04/18/18 14:41 04/18/18 14:41 04/18/18 14:41 04/18/18 10:30 Cor: RSR, No murmurs, No gallops Lungs: Clear to P&A Abd: Soft, Normal bowel sounds, No organomegaly Ext:No significant edema Abnormal Lab Results 04/15/18 04/16/18 04/17/18 20:33 07:35 08:15 Monocytes % Anion Gap BUN Calcium AST Alkaline Phosphatase Albumin IgG 1985 H 2215 H IgM 804 H 899 H Free [place] LC, Quant 111.7 H Free Lambda LC, Quant 68.6 H EBV IgG Ab >600.0 H EBV Nuclear Antigen 76.5 H 04/18/18 04/18/18 07:10 07:10 Monocytes % 12.9 H Anion Gap 5 L BUN 5 L Calcium 8.1 L AST 52 H D Alkaline Phosphatase 132 H Albumin 2.7 L IgG IgM Free [place] LC, Quant Free Lambda LC, Quant EBV IgG Ab EBV Nuclear Antigen Active Medications Acetaminophen (Tylenol -) 650 mg PO Q6H PRN PRN Reason: FEVER Last Admin: 04/18/18 14:36 Dose: 650 mg Sodium Chloride (Normal Saline -) 1,000 mls @ 83 mls/hr IV ASDIR [place] Last Admin: 04/18/18 16:01 Dose: 83 mls/hr A/P FUO Hepatosplenomegaly--> ? etiology Has moveable left axillary adenopathy and small right inguinal node will repeat CT scan c/a/p with contrast will check flow/JAK2/bcr;abl SFLCA --normal ratio May need biopsy of axillary node
[2018-04-19] MEDS: ACETAMINOPHEN 325 MG TABLET (FP) PO PRN ×2 (05:37→20:43)
[2018-04-19] MEDS: SODIUM CHLORIDE 1,000 ML IV SCH ×2 (05:53→18:08)
[2018-04-19 08:39] LABS: BASO % 0.2 % (0-2.0); EOS % 0.6 % (0-4.5); HEMATOCRIT 39.8 % (35.4-49); LYMPH % 30.8 % (8-40); MCH 31.2 pg (25.7-33.7); MCHC 35.2 g/dl (32.0-35.9); MEAN CELL VOLUME 88.5 fl (80-96); MONO % 10.8 % (3.8-10.2); NEUT % 57.6 % (42.8-82.8); PLATELET COUNT 172 K/MM3 (134-434); WHITE BLOOD COUNT 7.9 K/mm3 (4.0-10.0)
[2018-04-19 08:49] LABS: CHLORIDE 102 mmol/L (98-107); SODIUM 135 mmol/L (136-145)
[2018-04-19 09:11] LABS: POTASSIUM 5.1 mmol/L (3.5-5.1)
[2018-04-19 09:23] LABS: ALBUMIN 2.9 g/dl (3.4-5.0); ALK PHOS 133 U/L (45-117); ANION GAP 12 MMOL/L (8-16); BILIRUBIN,TOTAL 0.5 mg/dL (0.2-1.0); BLOOD UREA NITROGEN 8 mg/dL (7-18); CALCIUM 8.3 mg/dL (8.5-10.1); CO2 21 mmol/L (21-32); CREATININE 0.8 mg/dL (0.7-1.3); GLUCOSE,RANDOM 79 mg/dL (74-106); SGPT/ALT 50 U/L (12-78); TOT PROT 8.3 g/dl (6.4-8.2)
[2018-04-19 09:30] LABS: SGOT/AST 58 U/L (15-37)
--- NOTE | 2018-04-19 12:20 | PN ---
Physical Exam: SUBJECTIVE: Patient seen and examined at the bedside. OBJECTIVE: fevers persist. tmax 103.f Vital Signs Period Temp Pulse Resp BP Sys/Branch Pulse Ox Last 24 Hr 98.5 F-103.2 F 65-79 18-20 114-135/63-75 98-98 GENERAL: The patient is awake, alert, and fully oriented, in no acute distress. HEAD: Normal with no signs of trauma. EYES: PERRL, extraocular movements intact, sclera anicteric, conjunctiva clear. No ptosis. ENT: Ears normal, nares patent, oropharynx clear without exudates, moist mucous membranes. NECK: Trachea midline, full range of motion, supple. ABDOMEN: Soft, nontender, nondistended, normoactive bowel sounds, no guarding, no rebound, no hepatosplenomegaly, no masses. NEUROLOGICAL:Normal speech, gait not observed. PSYCH: Normal mood, normal affect. SKIN: Warm, dry, normal turgor, no rashes or lesions noted Laboratory Results - last 24 hr 04/15/18 04/17/18 04/18/18 20:33 08:15 17:05 WBC RBC Hgb Hct MCV MCH MCHC RDW Plt Count MPV Absolute Neuts (auto) Neutrophils % Lymphocytes % Monocytes % Eosinophils % Basophils % Nucleated RBC % ESR Sodium Potassium Chloride Carbon Dioxide Anion Gap BUN Creatinine Creat Clearance w eGFR Random Glucose Calcium Ferritin Total Bilirubin AST ALT Alkaline Phosphatase C-Reactive Protein 4.5 H Total Protein Albumin Free [place] LC, Quant 111.7 H Free Lambda LC, Quant 68.6 H Free [place]/Lambda Ratio 1.63 HCV Quantitation Hcv not detected 04/18/18 04/18/18 04/19/18 17:05 17:05 07:00 WBC 7.9 RBC 4.50 Hgb 14.0 Hct 39.8 MCV 88.5 MCH 31.2 MCHC 35.2 RDW 14.0 Plt Count 172 MPV 8.0 Absolute Neuts (auto) 4.5 Neutrophils % 57.6 Lymphocytes % 30.8 Monocytes % 10.8 H Eosinophils % 0.6 Basophils % 0.2 Nucleated RBC % 0 ESR 58 H Sodium Potassium Chloride Carbon Dioxide Anion Gap BUN Creatinine Creat Clearance w eGFR Random Glucose Calcium Ferritin 365.1 H Total Bilirubin AST ALT Alkaline Phosphatase C-Reactive Protein Total Protein Albumin Free [place] LC, Quant Free Lambda LC, Quant Free [place]/Lambda Ratio HCV Quantitation 08/25/18 07:00 WBC RBC Hgb Hct MCV MCH MCHC RDW Plt Count MPV Absolute Neuts (auto) Neutrophils % Lymphocytes % Monocytes % Eosinophils % Basophils % Nucleated RBC % ESR Sodium 135 L Potassium 5.1 Chloride 102 Carbon Dioxide 21 D Anion Gap 12 BUN 8 Creatinine 0.8 Creat Clearance w eGFR > 60 Random Glucose 79 Calcium 8.3 L Ferritin Total Bilirubin 0.5 AST 58 H ALT 50 Alkaline Phosphatase 133 H C-Reactive Protein Total Protein 8.3 H Albumin 2.9 L Free [place] LC, Quant Free Lambda LC, Quant Free [place]/Lambda Ratio HCV Quantitation Active Medications Generic Name Dose Route Start Last Admin Trade Name Freq PRN Reason Stop Dose Admin Acetaminophen 650 mg 04/16/18 22:46 04/19/18 05:37 Tylenol - PO 650 mg Q6H PRN Administration FEVER Sodium Chloride 1,000 mls @ 83 mls/hr 04/14/18 14:30 04/19/18 05:53 Normal Saline - IV 83 mls/hr ASDIR [place] Administration ASSESSMENT/PLAN: Patient is a 32 year old male with a significant past medical history of ITP. Patient comes to the ED with c/o of generalized body aches, CHRISTIANSON, sore throat, cough, left sided abdominal pain and fever. He was reported to be in [facility] x 5 weeks and comes to the ED after being there with rigors and profuse diaphoresis. He states he has often has night sweats. ID: Persistent fevers, etiology? found to have +hiv 1 antibody on this admission: Febrile overnight @ 103f. HIV 1 shows positive antibody,serologies pending, TB pending. Repeat blood cultures sent and pending. Tylenol for fevers. Monitor off antibiotics. seen by [facility] ALEX[facility]. ID following. GI: Hepatospenomegaly, acute Likely secondary to HIV 1. Heme: ITP history Platelets stable Pulm: Pulmonary nodules right lung, seen on imaging. Will need outpatient follow up. Pulm consulted and following. fen tolerating PO monitor electrolytes regular diet prophy ambulatory Visit type - Emergency Visit Emergency Visit: Yes ED Registration Date: 04/14/18 Care time: The patient presented to the Emergency Department on the above date and was hospitalized for further evaluation of their emergent condition. - New Patient This patient is new to me today: No - Critical Care Critical Care patient: No - Discharge Referral Referred to [facility] No
--- NOTE | 2018-04-19 13:00 | PN ---
Progress Note (short form) - Note Progress Note: feels improved, myalgias resolved still with fevers Vital Signs Period Temp Pulse Resp BP Sys/Branch Pulse Ox Last 24 Hr 98.5 F-103.2 F 65-79 18-20 114-135/63-75 98-98 cor-rrr lungs clear abd soft,firm, nt ext no edema no rash CBC, BMP 04/19/18 07:00 04/19/18 07:00 Microbiology 04/14/18 10:10 Blood - Peripheral Venous Blood Culture - Final NO GROWTH AFTER 5 DAYS INCUBATION 04/14/18 10:10 Blood - Peripheral Venous Blood Culture - Final NO GROWTH AFTER 5 DAYS INCUBATION 04/14/18 19:10 Nasopharyngeal Swab Respiratory Virus (PCR) - Final 04/14/18 10:10 Urine - Urine Clean Catch Urine Culture - Final NO GROWTH OBTAINED 04/14/18 19:10 Nasopharyngeal Swab Influenza Types A,B Antigen - Final 04/14/18 19:10 Nasopharyngeal Swab - Final 04/14/18 09:20 Blood - Peripheral Venous Blood Parasites Smear - Final a/p FUO-with HSM,-?chronic, present in December recent travel to [facility] ?ITP- now resolved! HIV positive- this is not an acute seroconversion- he is antibody positive- d/w patient at length all questions answered seen by [facility] SW significant other referred for outpt testing serologies pending repeat blood cultures off antibiotics sent esr/crp/ferritin crypt and histo antigen f/u quant check [place] and [place] serology blood afb [place] RF consider liver biopsy versus lymph node biopsy will d/w hematology Problem List - Problems (1) FUO (fever of unknown origin) Code(s): R50.9 - FEVER, UNSPECIFIED
[2018-04-19] MEDS: PANTOPRAZOLE 40 MG TABLET (FP) PO SCH (17:02)
[2018-04-20] MEDS: SODIUM CHLORIDE 1,000 ML IV SCH ×2 (05:59→21:25)
[2018-04-20 06:39] LABS: HBSAG SCREEN Negative (Negative); HEP A AB, IGM Negative (Negative); HEP B CORE AB, TOT Negative (Negative)
[2018-04-20] MEDS: PANTOPRAZOLE 40 MG TABLET (FP) PO SCH (10:45)
--- NOTE | 2018-04-20 11:19 | PN ---
Progress Note (short form) - Note Progress Note: feels improved, myalgias resolved temps resolving! Vital Signs Period Temp Pulse Resp BP Sys/Branch Pulse Ox Last 24 Hr 97.7 F-100.6 F 65-78 18-18 109-128/57-78 98 cor-rrr lungs clear abd +HSM ext no edema CBC, BMP 04/19/18 07:00 04/19/18 07:00 Microbiology 04/18/18 17:05 Blood - Peripheral Venous Blood Culture - Preliminary NO GROWTH OBTAINED AFTER 24 HOURS, INCUBATION TO CONTINUE FOR 4 DAYS. 04/18/18 16:50 Blood - Peripheral Venous Blood Culture - Preliminary NO GROWTH OBTAINED AFTER 24 HOURS, INCUBATION TO CONTINUE FOR 4 DAYS. 04/14/18 10:10 Blood - Peripheral Venous Blood Culture - Final NO GROWTH AFTER 5 DAYS INCUBATION 04/14/18 10:10 Blood - Peripheral Venous Blood Culture - Final NO GROWTH AFTER 5 DAYS INCUBATION 04/14/18 19:10 Nasopharyngeal Swab Respiratory Virus (PCR) - Final 04/14/18 10:10 Urine - Urine Clean Catch Urine Culture - Final NO GROWTH OBTAINED 04/14/18 19:10 Nasopharyngeal Swab Influenza Types A,B Antigen - Final 04/14/18 19:10 Nasopharyngeal Swab - Final 04/14/18 09:20 Blood - Peripheral Venous Blood Parasites Smear - Final quantiferon negtve zika negative a/p FUO-with HSM,-?chronic, present in December recent travel to [facility] ?ITP- now resolved! HIV positive- this is not an acute seroconversion- he is antibody positive- d/w patient at length all questions answered seen by [facility] SW significant other referred for outpt testing serologies pending repeat blood cultures off antibiotics sent esr/crp/ferritin crypt and histo antigen check [place] serology blood afb RAVEN RF consider liver biopsy versus lymph node biopsy if fevers persist will d/w hematology d/w hospitalist Problem List - Problems (1) FUO (fever of unknown origin) Code(s): R50.9 - FEVER, UNSPECIFIED
--- NOTE | 2018-04-20 11:27 | PN ---
Physical Exam: SUBJECTIVE: Patient seen and examined at the bedside. Patient agrees to follow up in the [facility] on discharge. Asking for new PCP referral as well as new pharmacy referral for confidentiality. OBJECTIVE: for discharge tomorrow if remains afebrile, low grade temps overnight but improving. Vital Signs Period Temp Pulse Resp BP Sys/Branch Pulse Ox Last 24 Hr 97.7 F-100.6 F 65-78 18-18 109-128/57-78 98 GENERAL: The patient is awake, alert, and fully oriented, in no acute distress. HEAD: Normal with no signs of trauma. EYES: PERRL, extraocular movements intact, sclera anicteric, conjunctiva clear. No ptosis. ENT: Ears normal, nares patent, oropharynx clear without exudates, moist mucous membranes. NECK: Trachea midline, full range of motion, supple. ABDOMEN: Soft, nontender, nondistended, normoactive bowel sounds, no guarding, no rebound, no hepatosplenomegaly, no masses. NEUROLOGICAL:Normal speech, gait not observed. PSYCH: Normal mood, normal affect. SKIN: Warm, dry, normal turgor, no rashes or lesions noted Laboratory Results - last 24 hr 04/15/18 04/15/18 04/17/18 06:45 20:33 08:15 Rheumatoid Factor Dengue Fever IgG Ab 4.83 H Dengue Fever IgM Ab <1.00 Hep A IgM Ab Confirm Negative Hepatitis A Ab Total Positive H Hep Bs Antigen Negative Hep Bs Antibody Non reactive Hep B Core Total Ab Negative TB Test (QFT) Negative 04/20/18 05:22 Rheumatoid Factor < 10.0 Dengue Fever IgG Ab Dengue Fever IgM Ab Hep A IgM Ab Confirm Hepatitis A Ab Total Hep Bs Antigen Hep Bs Antibody Hep B Core Total Ab TB Test (QFT) Active Medications Generic Name Dose Route Start Last Admin Trade Name Freq PRN Reason Stop Dose Admin Acetaminophen 650 mg 04/16/18 22:46 04/19/18 20:43 Tylenol - PO 650 mg Q6H PRN Administration FEVER Sodium Chloride 1,000 mls @ 75 mls/hr 04/19/18 17:15 04/20/18 05:59 Normal Saline - IV 75 mls/hr ASDIR CAROLINA Administration Pantoprazole Sodium 40 mg 04/19/18 16:15 04/20/18 10:45 Protonix - PO 40 mg DAILY CAR[place]INA Administration ASSESSMENT/PLAN: Patient is a 32 year old male with a significant past medical history of ITP. Patient comes to the ED with c/o of generalized body aches, CHRISTIANSON, sore throat, cough, left sided abdominal pain and fever. He was reported to be in [facility] x 5 weeks and comes to the ED after being there with rigors and profuse diaphoresis. He states he has often has night sweats. ID: Persistent fevers, fever curve improving. tb negative. serology pending. Blood cultures negative to date. Patient was found to have +hiv 1 antibody on this admission, patient to follow up in [facility]. If remains afebrile, can be discharged tomorrow per ID GI: Hepatospenomegaly, acute Likely secondary to HIV 1. Heme: ITP history Platelets stable Pulm: Pulmonary nodules right lung, seen on imaging. Will need outpatient follow up. Pulm consulted and following. fen tolerating PO monitor electrolytes regular diet prophy ambulatory Visit type - Emergency Visit Emergency Visit: Yes ED Registration Date: 04/14/18 Care time: The patient presented to the Emergency Department on the above date and was hospitalized for further evaluation of their emergent condition. - New Patient This patient is new to me today: No - Critical Care Critical Care patient: No - Discharge Referral Referred to [facility] Med P.C.: No
[2018-04-20] MEDS: ACETAMINOPHEN 325 MG TABLET (FP) PO PRN (21:26)
[2018-04-21 08:02] LABS: EOS % 1.3 % (0-4.5); HEMATOCRIT 41.1 % (35.4-49); HEMOGLOBIN 14.2 GM/dL (11.7-16.9); LYMPH % 29.4 % (8-40); MCH 29.9 pg (25.7-33.7); MCHC 34.4 g/dl (32.0-35.9); MEAN CELL VOLUME 86.7 fl (80-96); MEAN PLT VOLUME 7.8 fl (7.5-11.1); MONO % 10.6 % (3.8-10.2); NEUT % 58.7 % (42.8-82.8); PLATELET COUNT 136 K/MM3 (134-434); RBC 4.74 M/mm3 (4.00-5.60); RDW 14.1 % (11.9-15.9); WHITE BLOOD COUNT 5.3 K/mm3 (4.0-10.0)
[2018-04-21 08:34] LABS: ALBUMIN 2.9 g/dl (3.4-5.0); ANION GAP 10 MMOL/L (8-16); CALCIUM 8.6 mg/dL (8.5-10.1); CHLORIDE 104 mmol/L (98-107); CO2 25 mmol/L (21-32); GLUCOSE,RANDOM 84 mg/dL (74-106); POTASSIUM 4.5 mmol/L (3.5-5.1); SGPT/ALT 53 U/L (12-78); SODIUM 139 mmol/L (136-145)
[2018-04-21 08:39] LABS: ALK PHOS 131 U/L (45-117); BILIRUBIN,TOTAL 0.4 mg/dL (0.2-1.0); BLOOD UREA NITROGEN 8 mg/dL (7-18); CREATININE 0.6 mg/dL (0.7-1.3); SGOT/AST 62 U/L (15-37); TOT PROT 8.2 g/dl (6.4-8.2)
[2018-04-21] MEDS: SODIUM CHLORIDE 1,000 ML IV SCH (10:31)
[2018-04-21] MEDS: PANTOPRAZOLE 40 MG TABLET (FP) PO SCH (10:31)
--- NOTE | 2018-04-21 12:09 | PN ---
Progress Note, Physician History of Present Illness: PULMONARY ALERT,NO DISTRESS,-SOB,-COUGH,-CP . T-MAX 100.5 - Current Medication List Current Medications: Active Medications Acetaminophen (Tylenol -) 650 mg PO Q6H PRN PRN Reason: FEVER Last Admin: 04/20/18 21:26 Dose: 650 mg Sodium Chloride (Normal Saline -) 1,000 mls @ 75 mls/hr IV ASDIR [facility] Last Admin: 04/21/18 10:31 Dose: 75 mls/hr Pantoprazole Sodium (Protonix -) 40 mg PO DAILY [facility] Last Admin: 04/21/18 10:31 Dose: 40 mg - Objective Vital Signs: Vital Signs Temperature 99.5 F 04/21/18 06:00 Pulse Rate 66 04/21/18 06:00 Respiratory Rate 20 04/21/18 06:00 Blood Pressure 112/69 04/21/18 06:00 O2 Sat by Pulse Oximetry (%) 98 04/20/18 21:00 Constitutional: Yes: Calm, Thin Eyes: Yes: WNL HENT: Yes: WNL Neck: Yes: WNL Cardiovascular: Yes: Regular Rate and Rhythm, S1, S2 Respiratory: Yes: CTA Bilaterally Gastrointestinal: Yes: Normal Bowel Sounds, Soft Extremities: Yes: WNL Edema: No Labs: CBC, BMP 04/21/18 07:00 04/21/18 07:00 INR, PTT INR 1.13 (0.83-1.09) H 04/15/18 06:45 Assessment/Plan Problem List - Problems (1) HIV (human immunodeficiency virus infection) Code(s): B20 - HUMAN IMMUNODEFICIENCY VIRUS [HIV] DISEASE (2) Fever Code(s): R50.9 - FEVER, UNSPECIFIED (3) Hepatosplenomegaly Code(s): R16.2 - HEPATOMEGALY WITH SPLENOMEGALY, NOT ELSEWHERE CLASSIFIED (4) Lung nodules Code(s): R91.8 - OTHER NONSPECIFIC ABNORMAL FINDING OF LUNG FIELD (5) Abdominal pain Code(s): R10.9 - UNSPECIFIED ABDOMINAL PAIN Qualifiers: Abdominal location: unspecified location Qualified Code(s): R10.9 - Unspecified abdominal pain Assessment/Plan RIGHT BASE LUNG NODULE FEVER/WGT LOSS/ABD PAIN TOBACCO ABUSE WOULD TREAT HIV INFECTION PER ID OUTPATIENT PET SCAN TO FURTHER EVALUATE RIGHT BASE NODULE SEROLOGY,CULTURES DR JACKSON
--- NOTE | 2018-04-21 12:49 | CON.GI ---
Consult Consult Specialty:: GI Reason for Consultation:: elevated liver enzymes, ALP - History of Present Illness History of Present Illness: Chart reviewed. ID, hem/onc and pulm assessments noted. The pt was evaluated by GI service in November of this year. EGD revealed H. pylori positive gastritis. The colonoscopy with biopsies was negative for any acute pathology. The liver enzymes were normal. per initial intake: This is a 32 year old male with no pmhx. Pt was in [facility] for 5 weeks. For the last week he has been feeling generalized body aches, CHRISTIANSON, sore throat, cough, left sided abdominal pain and fever. In his last week in [facility] pt sought medical attention, was given antibiotics to which he said didn't really help. He landed yesterday and fever was high with rigors and sweating. Pt states he was bit by many mosquitos in [facility]. Denies itching, change in vision, nausea, vomiting, cp, sob. Right now he feels better after receiving medication. 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 At the time of this encounter, the pt appeared comfortable. pain-free and AAOx3. Reported no recent jaundice, RUQ/epigastric pain, nausea, or vomiting. Was drinking beer while in [facility]. Denied use of recreational drugs. Denied ill contacts. Labs revealed minimally elevated AST and ALP. CT and US both described Hepatosplenomegaly, which is not new. - Past Medical History [employer]: No: Alzheimer's Cardio/Vascular: No: AFIB Pulmonary: No: Asthma Gastrointestinal: No: Ascites Hepatobiliary: No: Cirrhosis Renal/: No: Renal Failure Infectious Disease: Yes: HIV (newly diagnosed) Psych: No: Addictions Musculoskeletal: No: Bursitis Rheumatology: No: Fibromyalgia ENT: No: Allergic Rhinitis Endocrine: No: Jonathan's Disease, Diabetes Mellitus - Past Surgical History Past Surgical History: Yes: None - Alcohol/Substance Use Hx Alcohol Use: No History of Substance Use: reports: None - Smoking History Smoking history: Current every day smoker Have you smoked in the past 12 months: Yes Aproximately how many cigarettes per day: 3 If you are a former smoker, when did you quit?: 3 WEEKS AGO - Social History ADL: Independent Occupation: construction History of Recent Travel: Yes ([facility] ) Home Medications - Allergies Allergies/Adverse Reactions: Allergies Allergy/AdvReac Type Severity Reaction Status Date / Time No Known Allergies Allergy Verified 04/14/18 14:36 - Home Medications Home Medications: Ambulatory Orders NK [No Known Home Medication] 04/15/18 Family Disease History - Family Disease History Family Disease History: Diabetes: Father, Other: Mother (breast and abdominal surgery ? reason) Review of Systems Findings/Remarks: as per HPI, ED, H&P Physical Exam-GI Vital Signs: Vital Signs Temperature 98.6 F 04/21/18 10:00 Pulse Rate 68 04/21/18 10:00 Respiratory Rate 18 04/21/18 10:00 Blood Pressure 116/58 04/21/18 10:00 O2 Sat by Pulse Oximetry (%) 97 04/21/18 09:00 Constitutional: Yes: Well Nourished, No Distress, Calm. No: Cachectic, Pallor Eyes: Yes: Conjunctiva Clear. No: Sclera Icterus HENT: Yes: Atraumatic Neck: Yes: Supple Cardiovascular: Yes: Regular Rate and Rhythm Respiratory: Yes: Regular Gastrointestinal Inspection: No: Ascites, Distention ...Auscultate: Yes: Normoactive Bowel Sounds ...Palpate: Yes: Soft. No: Firm/Rigid, Guarding, Mass, Tenderness, Tenderness, Epigastium Neurological: Yes: Alert, Oriented. No: Asterixis, Confusion, Lethargy Labs: CBC, BMP 04/21/18 07:00 04/21/18 07:00 INR, PTT INR 1.13 (0.83-1.09) H 04/15/18 06:45 Laboratory Last Values WBC 5.3 K/mm3 (4.0-10.0) 04/21/18 07:00 RBC 4.74 M/mm3 (4.00-5.60) 04/21/18 07:00 Hgb 14.2 GM/dL (11.7-16.9) 04/21/18 07:00 Hct 41.1 % (35.4-49) 04/21/18 07:00 MCV 86.7 fl (80-96) 04/21/18 07:00 MCH 29.9 pg (25.7-33.7) 04/21/18 07:00 MCHC 34.4 g/dl (32.0-35.9) 04/21/18 07:00 RDW 14.1 % (11.9-15.9) 04/21/18 07:00 Plt Count 136 K/MM3 (134-434) D 04/21/18 07:00 MPV 7.8 fl (7.5-11.1) 04/21/18 07:00 Absolute Neuts (auto) 3.1 K/mm3 (1.5-8.0) 04/21/18 07:00 Absolute Lymphs (auto) 2.0 x10E3/uL (0.7-3.1) 04/16/18 07:35 Neutrophils % 58.7 % (42.8-82.8) 04/21/18 07:00 Neutrophils % (Manual) 46.0 % (42.8-82.8) 04/14/18 09:20 Band Neutrophils % 3.0 % 04/14/18 09:20 Lymphocytes % 29.4 % (8-40) 04/21/18 07:00 Lymphocytes % (Manual) 20.0 % (8-40) 04/14/18 09:20 Monocytes % 10.6 % (3.8-10.2) H 04/21/18 07:00 Monocytes % (Manual) 6 % (3.8-10.2) 04/14/18 09:20 Eosinophils % 1.3 % (0-4.5) D 04/21/18 07:00 Eosinophils % (Manual) 1.0 % (0-4.5) 04/14/18 09:20 Basophils % 0.0 % (0-2.0) 04/21/18 07:00 Basophils % (Manual) 0.0 % (0-2.0) 04/14/18 09:20 Myelocytes % (Man) 1 % (0-2) 04/14/18 09:20 Promyelocytes % (Man) 0 % (0-2) 04/14/18 09:20 Blast Cells % (Manual) 0 % (0-0) 04/14/18 09:20 Nucleated RBC % 0 % (0-0) 04/21/18 07:00 Lymphocytes 27 % (Not Estab.) 04/16/18 07:35 Metamyelocytes 1 % (0-2) 04/14/18 09:20 Nucleated RBCs TNP 04/16/18 07:35 Hypochromia 0 04/14/18 09:20 Toxic Granulation 0 04/14/18 09:20 Dohle Bodies 0 04/14/18 09:20 Platelet Estimate Decreased 04/14/18 09:20 Polychromasia 0 04/14/18 09:20 Poikilocytosis 0 04/14/18 09:20 Basophilic Stippling 0 04/14/18 09:20 Anisocytosis 0 04/14/18 09:20 Microcytosis 0 04/14/18 09:20 Macrocytosis 0 04/14/18 09:20 Spherocytes 0 04/14/18 09:20 Sickle Cells 0 04/14/18 09:20 Target Cells 0 04/14/18 09:20 Tear Drop Cells 0 04/14/18 09:20 Ovalocytes 0 04/14/18 09:20 Stomatocytes 0 04/14/18 09:20 Helmet Cells 0 04/14/18 09:20 [place] Bodies 0 04/14/18 09:20 [place] Rings 0 04/14/18 09:20 [place] Cells 0 04/14/18 09:20 Acanthocytes (Spur) 0 04/14/18 09:20 Rouleaux 0 04/14/18 09:20 Fragmented RBCs 0 04/14/18 09:20 Schistocytes 0 04/14/18 09:20 ESR 58 mm/hr (0-10) H 04/18/18 17:05 PT with INR 12.80 SEC (9.7-13.0) 04/15/18 06:45 INR 1.13 (0.83-1.09) H 04/15/18 06:45 Sodium 139 mmol/L (136-145) 04/21/18 07:00 Potassium 4.5 mmol/L (3.5-5.1) 04/21/18 07:00 Chloride 104 mmol/L (98-107) 04/21/18 07:00 Carbon Dioxide 25 mmol/L (21-32) 04/21/18 07:00 Anion Gap 10 MMOL/L (8-16) 04/21/18 07:00 BUN 8 mg/dL (7-18) 04/21/18 07:00 Creatinine 0.6 mg/dL (0.7-1.3) L 04/21/18 07:00 Creat Clearance w eGFR > 60 (>60) 04/21/18 07:00 Random Glucose 84 mg/dL (74-106) 04/21/18 07:00 Calcium 8.6 mg/dL (8.5-10.1) 04/21/18 07:00 Phosphorus 3.3 mg/dL (2.5-4.9) 04/15/18 06:45 Magnesium 2.0 mg/dL (1.8-2.4) 04/21/18 07:00 Ferritin 365.1 ng/ml (16.4-293.9) H 04/18/18 17:05 Total Bilirubin 0.4 mg/dL (0.2-1.0) 04/21/18 07:00 Direct Bilirubin 0.2 mg/dL (0.0-0.2) 04/17/18 08:15 AST 62 U/L (15-37) H 04/21/18 07:00 ALT 53 U/L (12-78) 04/21/18 07:00 Alkaline Phosphatase 131 U/L (45-117) H 04/21/18 07:00 LD Total 340 U/L (87-241) H 04/17/18 08:15 C-Reactive Protein 4.5 MG/DL (0.00-0.3) H 04/18/18 17:05 Total Protein 8.2 g/dl (6.4-8.2) 04/21/18 07:00 Albumin 2.9 g/dl (3.4-5.0) L 04/21/18 07:00 Urine Color Yellow 04/14/18 10:10 Urine Appearance Clear 04/14/18 10:10 Urine pH 6.0 (5.0-8.0) 04/14/18 10:10 Ur Specific [place] 1.016 (1.001-1.035) 04/14/18 10:10 Urine Protein Negative (NEGATIVE) 04/14/18 10:10 Urine Glucose (UA) Negative (NEGATIVE) 04/14/18 10:10 Urine Ketones Negative (NEGATIVE) 04/14/18 10:10 Urine Blood 2+ (NEGATIVE) H 04/14/18 10:10 Urine Nitrite Negative (NEGATIVE) 04/14/18 10:10 Urine Bilirubin Negative (<2.0 mg/dL) 04/14/18 10:10 Urine Urobilinogen 2.0 mg/dL (0.2-1.0) 04/14/18 10:10 Ur Leukocyte Esterase Negative (NEGATIVE) 04/14/18 10:10 Urine WBC (Auto) 1 /hpf (3-5) 04/14/18 10:10 Urine RBC (Auto) 15 /hpf (0-3) 04/14/18 10:10 Ur Epithelial Cells Rare /HPF (FEW) 04/14/18 10:10 Urine Mucus Rare 04/14/18 10:10 IgG 2215 mg/dL (700-1600) H 04/17/18 08:15 IgA 222 mg/dL (90-386) 04/17/18 08:15 IgM 899 mg/dL (20-172) H 04/17/18 08:15 Rheumatoid Factor < 10.0 IU/mL (0-15) 04/20/18 05:22 Absolute CD3 Count 1778 /uL (622-2402) 04/16/18 07:35 % CD3+ Lymphocytes 88.9 % (57.5-86.2) H 04/16/18 07:35 Absolute CD4 [place] 356 /uL (359-1519) L 04/16/18 07:35 % CD4+ Lymphocyte 17.8 % (30.8-58.5) L 04/16/18 07:35 CD4/CD8 Ratio 0.25 (0.92-3.72) L 04/16/18 07:35 % CD8+ Lymphocyte 70.7 % (12.0-35.5) H 04/16/18 07:35 Absolute CD8 Count 1414 /uL (109-897) H 04/16/18 07:35 Free [place] LC, Quant 111.7 mg/L (3.3-19.4) H 04/17/18 08:15 Free Lambda LC, Quant 68.6 mg/L (5.7-26.3) H 04/17/18 08:15 Free [place]/Lambda Ratio 1.63 (0.26-1.65) 04/17/18 08:15 Bab[place] microti IgG Ab <1:10 (Neg:<1:10) 04/14/18 12:40 Bab[place] microti IgM Ab <1:10 (Neg:<1:10) 04/14/18 12:40 CMV IgG Ab > 10.00 U/mL (0.00-0.59) H 04/16/18 07:35 CMV IgM Ab < 30.0 AU/mL (0.0-29.9) 04/16/18 07:35 Dengue Fever IgG Ab 4.83 ISR (<1.65) H 04/15/18 06:45 Dengue Fever IgM Ab <1.00 ISR (<1.65) 04/15/18 06:45 EBV IgG Ab >600.0 U/mL (0.0-17.9) H 04/16/18 07:35 EBV IgM Ab <36.0 U/mL (0.0-35.9) 04/16/18 07:35 EBV Nuclear Antigen 76.5 U/mL (0.0-17.9) H 04/16/18 07:35 Hep A IgM Ab Confirm Negative (Negative) 04/15/18 20:33 Hepatitis A Ab Total Positive (Negative) H 04/15/18 20:33 Hep Bs Antigen Negative (Negative) 04/15/18 20:33 Hep Bs Antibody Non reactive (.) 04/15/18 20:33 Hep B Core Total Ab Negative (Negative) 04/15/18 20:33 HCV Quantitation Hcv not detected IU/mL (.) 04/15/18 20:33 Monoscreen Negative (NEGATIVE) 04/15/18 06:45 HIV-1 Antibody Positive (Negative) H 04/15/18 01:39 HIV-2 Antibody Negative (Negative) 04/15/18 01:39 HIV 1&2 Ag/Ab, 4th Gen Reactive (Non Reactive) H 04/15/18 01:39 HIV Note Hiv-1 positive (.) 04/15/18 01:39 HIV 1&2 Antibody Screen Preliminary positive 04/15/18 01:39 HIV P24 Antigen Negative 04/15/18 01:39 TB Test (QFT) Negative (Negative) 04/17/18 08:15 Imaging - Results Cat Scan: Report Reviewed (04/12) Ultrasound: Report Reviewed Problem List - Problems (1) Elevated alkaline phosphatase level Code(s): R74.8 - ABNORMAL LEVELS OF OTHER SERUM ENZYMES (2) Elevated AST (SGOT) Code(s): R74.0 - NONSPEC ELEV OF LEVELS OF TRANSAMNS & LACTIC ACID DEHYDRGNSE (3) FUO (fever of unknown origin) Code(s): R50.9 - FEVER, UNSPECIFIED (4) Hepatosplenomegaly Code(s): R16.2 - HEPATOMEGALY WITH SPLENOMEGALY, NOT ELSEWHERE CLASSIFIED Assessment/Plan A 32M with minimal, relatively recent elevated AST, ALP, hepatomegaly, and the systemic symptoms, as above, on admission. No dysphasia, diarrhea, or weight loss. hepatic infiltrating process is a possibility, however would hold off on any invasive testings until after the blood work to rule out infections, autoimmune and hematologic causes are in. For now, monitor liver enzymes daily, stool for H. pylori ag to confirm eradication. Diet as tolerated. Discussed with the pt.
[2018-04-21 14:22] LABS: WEST NILE VIRUS AB SERUM,IGM Negative (Negative)
--- NOTE | 2018-04-21 15:07 | PN ---
Progress Note (short form) - Note Progress Note: feels improved, myalgias resolved temps resolving! Vital Signs Period Temp Pulse Resp BP Sys/Branch Pulse Ox Last 24 Hr 98.5 F-100.5 F 62-70 18-20 110-154/58-69 97-98 cor-rrr lungs clear abd soft,nt ext no edema CBC, BMP 04/21/18 07:00 04/21/18 07:00 quantiferon negtve zika negative a/p FUO-with HSM,-?chronic, present in December recent travel to [facility] ?ITP- now resolved! HIV positive- this is not an acute seroconversion- he is antibody positive- d/w patient at length all questions answered seen by [facility] SW significant other referred for outpt testing serologies pending repeat blood cultures off antibiotics sent esr/crp/ferritin crypt and histo antigen check [place] and [place] serology blood afb RAVEN RF chag[place] serology consider liver biopsy versus lymph node biopsy if fevers persist will d/w hematology d/w hospitalist d/w GI hopefully home in Problem List - Problems (1) FUO (fever of unknown origin) Code(s): R50.9 - FEVER, UNSPECIFIED
--- NOTE | 2018-04-21 16:29 | PN ---
Physical Exam: SUBJECTIVE: Patient seen and examined. No issues, complaints. T max 100.5 OBJECTIVE: Vital Signs Period Temp Pulse Resp BP Sys/Branch Pulse Ox Last 24 Hr 98.6 F-100.5 F 62-70 18-20 110-154/58-69 97-98 PE Neuro: alert, awake, cn 2-12intact Pulm: CTAB CV: s1 s2 rrr Abd: s nt nd + bs Ext: no le edema Laboratory Results - last 24 hr 04/19/18 04/21/18 04/21/18 06:00 07:00 07:00 WBC 5.3 RBC 4.74 Hgb 14.2 Hct 41.1 MCV 86.7 MCH 29.9 MCHC 34.4 RDW 14.1 Plt Count 136 D MPV 7.8 Absolute Neuts (auto) 3.1 Neutrophils % 58.7 Lymphocytes % 29.4 Monocytes % 10.6 H Eosinophils % 1.3 D Basophils % 0.0 Nucleated RBC % 0 Sodium 139 Potassium 4.5 Chloride 104 Carbon Dioxide 25 Anion Gap 10 BUN 8 Creatinine 0.6 L Creat Clearance w eGFR > 60 Random Glucose 84 Calcium 8.6 Magnesium 2.0 Total Bilirubin 0.4 AST 62 H ALT 53 Alkaline Phosphatase 131 H Total Protein 8.2 Albumin 2.9 L [place] Virus IgG Ab Positive H [place] Virus IgM Ab Negative Active Medications Generic Name Dose Route Start Last Admin Trade Name Freq PRN Reason Stop Dose Admin Acetaminophen 650 mg 04/16/18 22:46 04/20/18 21:26 Tylenol - PO 650 mg Q6H PRN Administration FEVER Sodium Chloride 1,000 mls @ 75 mls/hr 04/19/18 17:15 04/21/18 10:31 Normal Saline - IV 75 mls/hr ASDIR CAROLINA Administration Pantoprazole Sodium 40 mg 04/19/18 16:15 04/21/18 10:31 Protonix - PO 40 mg DAILY CAR[place]INA Administration Assessment: 32 year old male admitted with fever, diffuse body aches, CHRISTIANSON, abdominal pain x1 week. Plan: 1. HIV + - [facility] referral and establishment made, pt to follow on discharge 2. Fever, Hepatosplenomegaly - Per GI no acute interventions at this time - Additional serology ordered - MRI abdomen ordered - Awaiting additional serum serologies - D/w ID 3. R base lung nodule - Outpt PET scan on discharge 4. Thrombocytopenia, ?ITP - CTAP from 12/2017 shows mild hepatospleomegaly along with thrombocytopenia - Resolved - Seem Dr. Thomas in the past Problem List - Problems (1) Fever Code(s): R50.9 - FEVER, UNSPECIFIED Visit type - Emergency Visit Emergency Visit: Yes ED Registration Date: 04/14/18 Care time: The patient presented to the Emergency Department on the above date and was hospitalized for further evaluation of their emergent condition. - New Patient This patient is new to me today: No - Critical Care Critical Care patient: No
--- NOTE | 2018-04-21 16:45 | PN ---
Physical Exam: HEME/ONC CONSULT SUBJECTIVE: Patient seen and examined at bed side. No complaints. Feels good. Denies chest pain, sob, cough, palpitation, abdominal pain, nausea or vomiting. Bowel/Bladder habit normal. Sleep/Appeite normal. Tmax 100.5 F OBJECTIVE: Vital Signs Period Temp Pulse Resp BP Sys/Branch Pulse Ox Last 24 Hr 98.6 F-100.5 F 62-70 18-20 110-154/58-69 97-98 GENERAL: Young male, sitting comfortably in bed, patient is awake, alert, and fully oriented, in no acute distress. HEAD: Normal with no signs of trauma. EYES:EOM intact, no pallor or icterus. ENT: Ears normal, moist mucous membranes. NECK: Supple. LYMPH NODES: Left axilla and small right inguinal area. LUNGS: B/L Breath sounds equal, clear to auscultation bilaterally, no wheezes, no crackles, no accessory muscle use. HEART: Regular rate and rhythm, S1, S2 without murmur. ABDOMEN: Soft, nontender, nondistended, normoactive bowel sounds, no guarding, no rebound, no hepatosplenomegaly, no masses. EXTREMITIES: 2+ pulses, warm, well-perfused, no edema. NEUROLOGICAL: No facial droop. Normal speech, gait not observed. PSYCH: Normal mood, normal affect. SKIN: Warm, dry, normal turgor, no rashes or lesions noted Laboratory Results - last 24 hr 04/17/18 04/19/18 04/21/18 08:15 06:00 07:00 WBC 5.3 RBC 4.74 Hgb 14.2 Hct 41.1 MCV 86.7 MCH 29.9 MCHC 34.4 RDW 14.1 Plt Count 136 D MPV 7.8 Absolute Neuts (auto) 3.1 Neutrophils % 58.7 Lymphocytes % 29.4 Monocytes % 10.6 H Eosinophils % 1.3 D Basophils % 0.0 Nucleated RBC % 0 Sodium Potassium Chloride Carbon Dioxide Anion Gap BUN Creatinine Creat Clearance w eGFR Random Glucose Calcium Magnesium Total Bilirubin AST ALT Alkaline Phosphatase Total Protein Albumin West Nile Virus IgG Ab Positive H West Nile Virus IgM Ab Negative Q Fever Phase I Ab Negative Q Fever Phase II Ab Negative 04/21/18 07:00 WBC RBC Hgb Hct MCV MCH MCHC RDW Plt Count MPV Absolute Neuts (auto) Neutrophils % Lymphocytes % Monocytes % Eosinophils % Basophils % Nucleated RBC % Sodium 139 Potassium 4.5 Chloride 104 Carbon Dioxide 25 Anion Gap 10 BUN 8 Creatinine 0.6 L Creat Clearance w eGFR > 60 Random Glucose 84 Calcium 8.6 Magnesium 2.0 Total Bilirubin 0.4 AST 62 H ALT 53 Alkaline Phosphatase 131 H Total Protein 8.2 Albumin 2.9 L West Nile Virus IgG Ab West Nile Virus IgM Ab Q Fever Phase I Ab Q Fever Phase II Ab Active Medications Generic Name Dose Route Start Last Admin Trade Name Freq PRN Reason Stop Dose Admin Acetaminophen 650 mg 04/16/18 22:46 04/20/18 21:26 Tylenol - PO 650 mg Q6H PRN Administration FEVER Sodium Chloride 1,000 mls @ 75 mls/hr 04/19/18 17:15 04/21/18 10:31 Normal Saline - IV 75 mls/hr ASDIR [place] Administration Pantoprazole Sodium 40 mg 04/19/18 16:15 04/21/18 10:31 Protonix - PO 40 mg DAILY [place] Administration Delaney is a 32 year old male admitted with fever, diffuse body aches, abdominal pain x1 week. ASSESSMENT - Newly diagnosed HIV - Fever of unknown origin- -Hepatosplenomegaly -Lymphadenopathy - Right lung base nodule PLAN: Hepatosplenomegaly with lymphaenopathy- r/o malignancy Etiology unknown at this time. Work up is being done. Abdominal MRI done, report pending Thrombocytopenia-now resolved Has seen Dr. Kaur in the past. Rest as per the primary team. Plan of care explained to the patient. He verbalized understanding. Case discussed with Dr. Skinner. Visit type - Emergency Visit Emergency Visit: Yes ED Registration Date: 04/14/18 Care time: The patient presented to the Emergency Department on the above date and was hospitalized for further evaluation of their emergent condition. - New Patient This patient is new to me today: Yes Date on this admission: 04/21/18 - Critical Care Critical Care patient: No
--- NOTE | 2018-04-21 23:17 | PN ---
Teaching Attending Note Name of Resident: Shi Merrill ATTENDING PHYSICIAN STATEMENT I saw and evaluated the patient. I reviewed the resident's note and discussed the case with the resident. I agree with the resident's findings and plan as documented. ASSESSMENT AND PLAN: FUO with improved fever curve Hepatosplenomegaly--> ? etiology Has moveable left axillary adenopathy 1cmon U/S and small right inguinal node 0.6cm on U/S CT scans show borderline hilar/mediastinal adenopathy and RUL small nodule MRI abdomen done per GI Awaiting flow/JAK2/bcr;abl which were sent SFLCA --normal ratio Will need close outpatient follow up and monitoring of border line adenopathy and consideraion of biopsy based on clinical course/w/u GI to comment on MRI
[2018-04-22 08:31] LABS: INR 1.13 (0.83-1.09); PROTHROMBIN TIME (PATIENT) 12.8 SEC (9.7-13.0)
[2018-04-22 09:25] LABS: ALBUMIN 2.8 g/dl (3.4-5.0); BILIRUBIN,DIRECT < 0.2 mg/dL (0.0-0.2)
[2018-04-22] MEDS: PANTOPRAZOLE 40 MG TABLET (FP) PO SCH (09:25)
[2018-04-22 09:28] LABS: ALK PHOS 135 U/L (45-117); BILIRUBIN,TOTAL 0.4 mg/dL (0.2-1.0); SGOT/AST 76 U/L (15-37); SGPT/ALT 66 U/L (12-78); TOT PROT 8.1 g/dl (6.4-8.2)
[2018-04-22 10:12] VITALS: TEMP 98.4
--- NOTE | 2018-04-22 10:58 | PN ---
Physical Exam: HEME/ONC CONSULT SUBJECTIVE:Patient seen and examined at bed side. No complaints. Feels good. Denies chest pain, sob, cough, palpitation, abdominal pain, nausea or vomiting. Bowel/Bladder habit normal. Sleep/Appetite normal. No acute overnight events. OBJECTIVE: Vital Signs Period Temp Pulse Resp BP Sys/Branch Pulse Ox Last 24 Hr 98.0 F-99.2 F 57-71 18-20 110-121/56-67 98 GENERAL: Young male, sitting comfortably in bed, patient is awake, alert, and fully oriented, in no acute distress. HEAD: Normal with no signs of trauma. EYES:EOM intact, no pallor or icterus. ENT: Ears normal, moist mucous membranes. NECK: Supple. LUNGS: B/L Breath sounds equal, clear to auscultation bilaterally, no wheezes, no crackles, no accessory muscle use. HEART: Regular rate and rhythm, S1, S2 without murmur. ABDOMEN: Soft, nontender, nondistended, normoactive bowel sounds, no guarding, no rebound, no hepatosplenomegaly, no masses. EXTREMITIES: 2+ pulses, warm, well-perfused, no edema. NEUROLOGICAL: No facial droop. Normal speech, gait not observed. PSYCH: Normal mood, normal affect. SKIN: Warm, dry, normal turgor, no rashes or lesions noted Laboratory Results - last 24 hr 04/17/18 04/17/18 04/17/18 08:15 08:15 08:15 PT with INR INR Total Bilirubin Direct Bilirubin GGT AST ALT Alkaline Phosphatase Total Protein Total Protein (PEP) 8.3 Albumin Albumin (PEP) 3.0 Globulin 5.3 H Albumin/Globulin Ratio 0.6 L Beta Globulins 1.3 1.2 TREY & SPEP Interp Total Protein (TREY) 7.9 Albumin (TREY) 2.9 Albumin/Globulin (TREY) 0.6 L Fterv-0-Dgsfyssix TREY 0.4 Rxzvk-9-Vbotnliki TREY 0.9 Gamma Globulins (TREY) 2.5 H TREY M-Aldo Not observed Not observed TREY Comments IEP IgG 2183 H IEP IgA 217 IEP IgM 886 H West Nile Virus IgG Ab West Nile Virus IgM Ab Q Fever Phase I Ab Negative Q Fever Phase II Ab Negative 04/19/18 04/22/1818 06:00 07:30 07:30 PT with INR 12.80 INR 1.13 H Total Bilirubin 0.4 Direct Bilirubin < 0.2 GGT AST 76 H D ALT 66 D Alkaline Phosphatase 135 H Total Protein 8.1 Total Protein (PEP) Albumin 2.8 L Albumin (PEP) Globulin Albumin/Globulin Ratio Beta Globulins TREY & SPEP Interp Total Protein (TREY) Albumin (TREY) Albumin/Globulin (TREY) Rszcb-4-Kptjbbljh TREY Xeqvf-3-Janrgxfon TREY Gamma Globulins (TREY) TREY M-Aldo TREY Comments IEP IgG IEP IgA IEP IgM West Nile Virus IgG Ab Positive H West Nile Virus IgM Ab Negative Q Fever Phase I Ab Q Fever Phase II Ab 04/22/18 07:30 PT with INR INR Total Bilirubin Direct Bilirubin GGT 134 H AST ALT Alkaline Phosphatase Total Protein Total Protein (PEP) Albumin Albumin (PEP) Globulin Albumin/Globulin Ratio Beta Globulins TREY & SPEP Interp Total Protein (TREY) Albumin (TREY) Albumin/Globulin (TREY) Xtwjo-8-Hwxacmkhy TREY Lutne-9-Bluaffyrx TREY Gamma Globulins (TREY) TREY M-Aldo TREY Comments IEP IgG IEP IgA IEP IgM West Nile Virus IgG Ab West Nile Virus IgM Ab Q Fever Phase I Ab Q Fever Phase II Ab Active Medications Generic Name Dose Route Start Last Admin Trade Name Freq PRN Reason Stop Dose Admin Acetaminophen 650 mg 04/16/18 22:46 04/20/18 21:26 Tylenol - PO 650 mg Q6H PRN Administration FEVER Sodium Chloride 1,000 mls @ 75 mls/hr 04/19/18 17:15 04/21/18 10:31 Normal Saline - IV 75 mls/hr ASDIR [place]OL[place] Administration Pantoprazole Sodium 40 mg 04/19/18 16:15 04/22/18 09:25 Protonix - PO 40 mg DAILY [place] Administration Patient is a 32 year old male admitted with fever, diffuse body aches, abdominal pain x1 week. ASSESSMENT - Newly diagnosed HIV - Fever of unknown origin- -Hepatosplenomegaly -Lymphadenopathy - Right lung base nodule PLAN: Hepatosplenomegaly with lymphaenopathy- r/o malignancy Etiology unknown at this time. Work up is being done. Abdominal MRI done, report reviewed: Hepatosplenomegaly, 1.3 cm and 3 mm right lung base nodules. Thrombocytopenia-now resolved Has seen Dr. Kaur in the past. Rest as per the primary team. Plan of care explained to the patient. He verbalized understanding. Case discussed with Dr. Skinner. Visit type - Emergency Visit Emergency Visit: Yes ED Registration Date: 04/14/18 Care time: The patient presented to the Emergency Department on the above date and was hospitalized for further evaluation of their emergent condition. - New Patient This patient is new to me today: No - Critical Care Critical Care patient: No
[2018-04-22 13:13] VITALS: BP 128/68; PULSE 67
[2018-04-22 14:53] VITALS: BMI 23.3
--- NOTE | 2018-04-22 16:23 | PN ---
Progress Note (short form) - Note Progress Note: afebrile for 24 hurs ?viral syndrome abd MRI- +HSM, no masses Vital Signs Period Temp Pulse Resp BP Sys/Branch Pulse Ox Last 24 Hr 98.0 F-98.8 F 57-71 18-20 111-128/56-68 98-100 cor-rrr lungs clear abd soft,nt ext no edema CBC, BMP 04/21/18 07:00 04/21/18 07:00 a/p fevers resolved plan to start HIV meds as outpt- descovy/tivicay- he will f/u at [facility] on 05/05- he has appt for 2 pm he will call if he has fevers at home numbers for clinic and office given to patient Problem List - Problems (1) FUO (fever of unknown origin) Code(s): R50.9 - FEVER, UNSPECIFIED
--- NOTE | 2018-04-22 16:23 | DS ---
Physical Exam: SUBJECTIVE: Patient seen and examined. Feels well, no complaints, ready to go home. OBJECTIVE: Vital Signs Period Temp Pulse Resp BP Sys/Branch Pulse Ox Last 24 Hr 98.0 F-98.8 F 57-71 18-20 111-128/56-68 98-100 PE Neuro: alert, awake, cn 2-12intact Pulm: CTAB CV: s1 s2 rrr Abd: s nt nd + bs Ext: no le edema Laboratory Results - last 24 hr 04/17/18 04/17/18 04/17/18 08:15 08:15 08:15 PT with INR INR Total Bilirubin Direct Bilirubin GGT AST ALT Alkaline Phosphatase Total Protein Total Protein (PEP) 8.3 Albumin Albumin (PEP) 3.0 Globulin 5.3 H Albumin/Globulin Ratio 0.6 L Beta Globulins 1.3 1.2 Stool H. pylori Ag TREY & SPEP Interp Total Protein (TREY) 7.9 Albumin (TREY) 2.9 Albumin/Globulin (TREY) 0.6 L Ybhfr-2-Klwcgrmbh TREY 0.4 Ylmdd-0-Alusttdro TREY 0.9 Gamma Globulins (TREY) 2.5 H TREY M-Aldo Not observed Not observed TREY Comments IEP IgG 2183 H IEP IgA 217 IEP IgM 886 H HIV-1 RNA Quant HIV-1 RNA (PCR) log10 Q Fever Phase I Ab Negative Q Fever Phase II Ab Negative 04/17/18 04/22/18 04/22/18 17:30 07:30 07:30 PT with INR 12.80 INR 1.13 H Total Bilirubin 0.4 Direct Bilirubin < 0.2 GGT AST 76 H D ALT 66 D Alkaline Phosphatase 135 H Total Protein 8.1 Total Protein (PEP) Albumin 2.8 L Albumin (PEP) Globulin Albumin/Globulin Ratio Beta Globulins Stool H. pylori Ag TREY & SPEP Interp Total Protein (TREY) Albumin (TREY) Albumin/Globulin (TREY) Ylzko-7-Nechshxzs TREY Xomcg-4-Usipeasro TREY Gamma Globulins (TREY) TREY M-Aldo TREY Comments IEP IgG IEP IgA IEP IgM HIV-1 RNA Quant 08190 HIV-1 RNA (PCR) log10 4.695 Q Fever Phase I Ab Q Fever Phase II Ab 04/22/18 04/22/18 07:30 07:30 PT with INR INR Total Bilirubin Direct Bilirubin GGT 134 H AST ALT Alkaline Phosphatase Total Protein Total Protein (PEP) Albumin Albumin (PEP) Globulin Albumin/Globulin Ratio Beta Globulins Stool H. pylori Ag Cancelled TREY & SPEP Interp Total Protein (TREY) Albumin (TREY) Albumin/Globulin (TREY) Wqcgr-3-Ywliqgzwc TREY Qmraf-4-Mizdbfsmv TREY Gamma Globulins (TREY) TREY M-Aldo TREY Comments IEP IgG IEP IgA IEP IgM HIV-1 RNA Quant HIV-1 RNA (PCR) log10 Q Fever Phase I Ab Q Fever Phase II Ab HOSPITAL COURSE: Date of Admission:04/14/18 Date of Discharge: 04/22/18 Minutes to complete discharge: 37 Discharge Summary Reason For Visit: FEVER Current Active Problems Elevated AST (SGOT) (Acute) Elevated alkaline phosphatase level (Acute) FUO (fever of unknown origin) (Acute) Fever (Acute) HIV (human immunodeficiency virus infection) (Acute) Hepatosplenomegaly (Acute) Lung nodules (Acute) Hospital Course: Initial Hospital Course: Briefly, this 32 year old male with no pmhx. Pt was in [facility] for 5 weeks. For the last week he has been feeling generalized body aches, CHRISTIANSON, sore throat, cough, left sided abdominal pain and fever. In his last week in [facility] pt sought medical attention, was given antibiotics to which he said didn't really help. He landed yesterday and fever was high with rigors and sweating. Pt states he was bit by many mosquitos in [facility]. Subsequent Hospital Course/Progress Note/DC summary: Assessment: 32 year old male admitted with fever, diffuse body aches, CHRISTIANSON, abdominal pain x1 week. Plan: 1. HIV + - Fevers resolved - [facility] appt for 05/05 at 2pm - To start descovy/tivicay as oupt - Aware to call if fevers at home 2. Fever, Hepatosplenomegaly - Per GI no acute interventions at this time - Additional serology ordered - MRI abdomen negative for masses, + HSM 3. R base lung nodule - Outpt PET scan on discharge 4. Thrombocytopenia, ?ITP - CTAP from 12/2017 shows mild hepatospleomegaly along with thrombocytopenia - Resolved - Saw Dr. Thomas in the past, to follow up Dispo: - Home with above plan and follow up Condition: Stable - Instructions Diet, Activity, Other Instructions: Please return to the ED for any new, persistent, or worsening symptoms. Follow up with your PCP in 1 week, she will need to check your liver blood levels Follow up with [facility] on May [address] Costa Follow up with GI doctor for stool testing H. Pylori ag for eradication ( referral enclosed) Referrals: Danielle Cat MD [Primary Care Provider] - Kristyn Costa MD [Staff Physician] - Ollie Beal MD [Staff Physician] - Susanne Phoenix MD [Staff Physician] - Disposition: HOME - Home Medications Comprehensive Discharge Medication List: Ambulatory Orders Dolutegravir Sodium [Tivicay] 50 mg PO DAILY #30 tablet 04/22/18 Emtricitabine/Tenofov Alafenam [Descovy 200-25 mg Tablet (Nf)] 1 each PO DAILY # 30 tablet 04/22/18 Problem List - Problems (1) Fever Code(s): R50.9 - FEVER, UNSPECIFIED This patient is new to me today: No Emergency Visit: Yes ED Registration Date: 04/14/18 Care time: The patient presented to the Emergency Department on the above date and was hospitalized for further evaluation of their emergent condition. Critical Care patient: No - Discharge Referral Referred to [facility] Med P.C.: No
[2018-04-22 16:30] LABS: TOTAL PROTEIN, URINE 21.4 mg/dL (Not Estab.)
--- NOTE | 2018-04-23 14:46 | PATH ---
Surgical Pathology Report Patient Name: BARTOLOME ESTRADA [facility]. Rec. #: [id number] /Age/Gender: 1985 (Age: 32) / M Account: [id number] Location: [address] [place] [address] Taken: 04/21/2018 Received: 04/21/2018 Reported: 04/23/2018 Physicians: Susanne Phoenix M.D. Specimen(s) Received 2 GREEN TOPS AND 2 LAVENDER TOPS Clinical History Hepatosplenomegaly Final Diagnosis COMPREHENSIVE FL[facility] [place] [place] [place] ([id number]) shows the following: INTERPRETATION: LOW VIABILITY SPECIMEN WITH NO ATYPICAL FLOW CYTOMETRIC FINDINGS COMMENT: Results are listed for viable cells; however, the viability of the specimen was low. Therefore, results should be interpreted with caution due to the possibility of selective loss of the population(s) of interest. ADDITIONAL TESTS: Cytogenetics, Molecular VIABILITY: 79% PHENOTYPE: Lymphocytes include NK cells, and immunophenotypically normal T cells with a decreased CD4:CD8. B cells are too few to assess clonality by light-chain staining. Granulocytes are immunophenotypically mature. See [facility] report ([id number]) for additional details. Electronically Signed Stevan Roca M.D. Addendum Reported: 04/24/2018 Addendum Diagnosis MYELODYSPLASIA FISH PANEL [facility] [place] ([id number]) shows the following: INTERPRETATION: No evidence of deletion 5q or monosomy 5 is present. No evidence of deletion 7q or monosomy 7 is present. No evidence of trisomy 8 (+8) is present. No evidence of deletion 13q14.2 is present. No evidence of rearrangement of 11q23. No evidence of a deletion of the p53 (17p13) locus. No evidence of deletion 20q12 is present COMMENTS: Correlation with pending cytogenetics ([id number]) is recommended. Seven multiplex probe stain procedures were performed. See [facility] report ([id number]) for additional details. Stevan Roca M.D. Addendum Reported: 04/25/2018 Addendum Diagnosis BCR-ABL GENE REARRANGEMENT (IS) ANALYSIS RESULTS: NEGATIVE BCR/ABL MAJOR BREAKPOINTS (b2a2 and b3a2): NOT DETECTED BCR/ABL MINOR BREAKPOINT (e1a2): NOT DETECTED. INTERPRETATION: NO BCR-ABL TRANSLOCATION WAS DETECTED IN THIS SAMPLE. Comment: The BCR/ABL fusion gene, formed by rearrangement of the breakpoint cluster region (bcr) on chromosome 22 with the c-abl emilie-oncogene on chromosome 9, is present in vast majority of CML patients, and 35% of [place] chromosome-positive precursor B-ALL. The BCR/ABL rearrangement causes production of an abnormal tyrosine kinase molecule with increased activity. The major breakpoint cluster region (M-bcr), detected mainly in CML, has two junctional variants, b2a2 and b3a2. The M-bcr gives rise to the BCR/ABL1 chimeric protein p210, a deregulated tyrosine kinase. The minor breakpoint region (m-bcr), detected in a small minority of CML patients and in a majority of patients with [place] chromosome-positive precursor B-ALL, codes for the BCR/ABL1 chimeric protein p190. The quantification of BCR-ABL major breakpoints (b3a2 and b2a2) was compliant with the updated international recommendations, and contains an IS-MMR Calibrator to the International Scale (IS). The International Randomized Study of Interferon (IRIS) trial and follow up studies have demonstrated that achieving MMR, or a 3-log reduction in BCR-ABL1 expression from the standardized baseline level, is a mohr clinical outcome. ELECTRONICALLY SIGNED BY: Sameer Britt See [facility] report ([id number]) for details. Stevan Roca M.D. Addendum Reported: 05/01/2018 Addendum Diagnosis CYTOGENETIC KARYOTYPE ANALYSIS performed and interpreted at [facility] ([id number]) shows the following: RESULTS: 46,XY [5] INTERPRETATION: Normal Karyotype This peripheral blood specimen produced only five analyzable metaphase cells. Although chromosome morphology and band resolution are somewhat sub-optimal, no consistent numerical or structural chromosome abnormalities were observed. However, a repeat bone marrow sample, when clinically appropriate, may produce additional cytogenetic information and is recommended. This normal result does not rule out a neoplasm. Subtle rearrangements or the presence of an aberrant clone in a low proportion of cells cannot be ruled out. Correlation with other clinical and hematologic data is suggested. Analysis was performed on cells from an unstimulated tissue culture and a tissue culture that was stimulated with lymphoid mitogens. See [facility] report for additional details ([id number]) Radha Tracy M.D. Gross Description Received are 2 green top tubes and 2 purple top tubes of peripheral blood which are sent to [facility]. 04/21/2018 [facility]04/21/2018
[2018-04-24 16:28] LABS: BRUCELLA IG-M Negative (Negative)
--- NOTE | 2018-05-01 16:48 | PN ---
HC Provider Note Provider Note: 05/01/18, 4:47p - called pt for f/u; states he is taking his ARV, tolerating well. Denies any side effects. No fever, no chills, no abd pain, no n/v/d. Eating well and sleeping well. States he is feeling well. Will f/u for labs on Saturday05/06/18 at 2:30pm.
== END 2018-04-22 17:30 | disposition home or self-care (01) ==
LOC: JER 07:30 → JERBED 12:40 → J5S 04-15 21:21
PROVIDERS: ADMIT Hospitalist; ATTEND Nurse Practitioner Acute Care
DX: R16.2 Hepatomegaly with splenomegaly, not elsewhere classified (principal); D69.6 Thrombocytopenia, unspecified; R50.9 Fever, unspecified; R10.9 Unspecified abdominal pain; Z21 Asymptomatic human immunodeficiency virus [HIV] infection status; F17.210 Nicotine dependence, cigarettes, uncomplicated; R74.8 Abnormal levels of other serum enzymes; R59.1 Generalized enlarged lymph nodes; R91.8 Other nonspecific abnormal finding of lung field
CPT/HCPCS: 36415; 71046-TC-FY; 71250-TC; 71260-TC; 74176-TC; 74177-TC; 74183-TC; 76700-TC; 76882-TC-RT-FY; 80048; 80053; 80076; 81003; 81015; 82728; 82784; 82977; 83516; 83615; 83735; 83883; 84100; 84155; 84156; 84157; 84165; 85025; 85610; 85651; 86038; 86140; 86308; 86334; 86359; 86360; 86376; 86431; 86480; 86593; 86622; 86638; 86644; 86645; 86664; 86665; 86704; 86706; 86708; 86753; 86788; 86789; 86790; 87040; 87086; 87116; 87207; 87340; 87389; 87522; 87633; 87804; 87899; 87900; 87901; 87906; 88300-TC; 99284-25; J7030

== ENCOUNTER 2018-10-01 19:44 | Emergency (ER) | payer OTHER ==
--- NOTE | 2018-10-01 21:25 | PDOC ---
Rapid Medical Evaluation Time Seen by Provider: 10/01/18 21:19 Medical Evaluation: Allergies Allergy/AdvReac Type Severity Reaction Status Date / Time No Known Allergies Allergy Verified 04/14/18 14:36 10/01/18 21:23 I have performed a brief in-person evaluation of this patient. The patient presents with a chief complaint of: L mid back pain while heavy lifting today at work, No dysuria, n/v Pertinent physical exam findings:stable and well gonzales w/ +ttp to L mid back I have ordered the following:nothing The patient will proceed to the ED for further evaluation. Discharge Disposition - Diagnosis Back strain Qualifiers: Encounter type: initial encounter Qualified Code(s): S39.012A - Strain of muscle, fascia and tendon of lower back, initial encounter - Referrals Referrals: Danielle Cat MD [Primary Care Provider] - - Patient Instructions - Post Discharge Activity
[2018-10-01 21:27] VITALS: BP 114/66; PULSE 74; TEMP 98.4; BMI 25.2
[2018-10-01] MEDS ORDERED: KETOROLAC TROMETHAMINE 60 MG/2 ML VIAL IM ONE (22:07)
[2018-10-01] MEDS ORDERED: KETOROLAC TROMETHAMINE 60 MG/2 ML VIAL ONE (22:10)
--- NOTE | 2018-10-01 22:10 | PDOC ---
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 Has no loss of bowel or bladder function or systemic symptoms. Past History - Past Medical History Allergies/Adverse Reactions: Allergies Allergy/AdvReac Type Severity Reaction Status Date / Time No Known Allergies Allergy Verified 10/01/18 21:27 Home Medications: Ambulatory Orders Emtricitabine/Tenofov Alafenam [Descovy 200-25 mg Tablet (Nf)] 1 each PO DAILY # 30 tablet 09/04/18 Cyclobenzaprine HCl [Flexeril 10 mg] 10 mg PO HS PRN #10 tablet 10/01/18 Ibuprofen [Motrin -] 600 mg PO TID #30 tablet 10/01/18 Asthma: No COPD: No DVT: No Diabetes: No HTN: No Hypercholesterolemia: No Liver Disease: Yes Psychiatric Problems: Yes (anxiety and panic attacks.) - Suicide/Smoking/Psychosocial Hx Smoking Status: No Smoking History: Never smoked Have you smoked in the past 12 months: No Number of Cigarettes Smoked Daily: 3 If you are a former smoker, when did you quit?: 3 WEEKS AGO Information on smoking cessation initiated: No 'Breaking Loose' booklet given: 04/14/18 Hx Alcohol Use: No Drug/Substance Use Hx: No Substance Use Type: None Review of Systems - Review of Systems Constitutional: No: Fever Musculoskeletal: Yes: Back Pain *Physical Exam - Vital Signs Last Vital Signs Temp Pulse Resp BP Pulse Ox 98.4 F 74 18 114/66 100 10/01/18 21:25 10/01/18 21:25 10/01/18 21:25 10/01/18 21:25 10/01/18 21:25 - Physical Exam Comments: 10/01/18 22:09 Lumbar spine skin color and temperature are normal range of motion slightly limited terminal flexion and extension. There is no midline tenderness. Moderate paralumbar musculature spasm and tenderness. 5 out of 5 strength in bilateral lower extremities without gross sensorimotor deficits negative straight leg raise test thighs and calves are soft and nontender. He is neurovascularly intact. Moderate Sedation - Procedure Monitoring Vital Signs: Procedure Monitoring Vital Signs Temperature 98.4 F 10/01/18 21:25 Pulse Rate 74 10/01/18 21:25 Respiratory Rate 18 10/01/18 21:25 Blood Pressure 114/66 10/01/18 21:25 O2 Sat by Pulse Oximetry (%) 100 10/01/18 21:25 *DC/Admit/Observation/Transfer Diagnosis at time of Disposition: Back strain Qualifiers: Encounter type: initial encounter Qualified Code(s): S39.012A - Strain of muscle, fascia and tendon of lower back, initial encounter - Discharge Dispostion Disposition: HOME Condition at time of disposition: Stable Decision to Admit order: No - Prescriptions Prescriptions: Cyclobenzaprine HCl [Flexeril 10 mg] 10 mg PO HS PRN #10 tablet PRN Reason: Muscle Spasms Ibuprofen [Motrin -] 600 mg PO TID #30 tablet - Referrals Referrals: Danielle Cat MD [Primary Care Provider] - Harish Tamez MD [Staff Physician] - - Patient Instructions Printed Discharge Instructions: Low Back Pain, DI for Low Back Pain Additional Instructions: Please take the anti-inflammatory as directed with food, discontinue the medication if it bothers her stomach. The muscle relaxers one tablet before bedtime and will make you sleepy. Return to the emergency room should symptoms worsen or go unresolved. Follow-up with spine surgery in 1-2 days for further evaluation and treatment options. - Post Discharge Activity
== END 2018-10-01 22:16 | disposition home or self-care (01) ==
LOC: JERFT 19:44
PROC: 3E0233Z Introduction of Anti-inflammatory into Muscle, Percutaneous Approach (ICD-10-PCS; principal; 2018-10-01)
DX: S39.012A Strain of muscle, fascia and tendon of lower back, initial encounter (principal); X50.0XXA Overexertion from strenuous movement or load, initial encounter; Y93.H3 Activity, building and construction; Y92.69 Other specified industrial and construction area as the place of occurrence of the external cause; Y99.0 Civilian activity done for income or pay
CPT/HCPCS: 96372; 99281-25

== ENCOUNTER 2018-10-11 19:19 | Emergency (ER) | payer OTHER ==
[2018-10-11 19:36] VITALS: BP 143/80; PULSE 82; TEMP 98; BMI 24.5
[2018-10-11] MEDS ORDERED: DIPHTH,PERTUSS(ACELL),TET 0.5 ML DISP.SYRIN IM ONE ×2 (21:03→21:05)
--- NOTE | 2018-10-11 21:07 | PDOC ---
History of Present Illness - General Chief Complaint: Injury Stated Complaint: Fall/Injury Time Seen by Provider: 10/11/18 20:20 History Source: Patient Exam Limitations: No Limitations - History of Present Illness Initial Comments: 10/11/18 21:02 HISTORY OF PRESENT ILLNESS: 32-year-old male denies medical history presents emergency department for laceration to his right eyebrow sustained at 9 AM this morning while at work. Patient states he was lifting sheet-metal when the metal slipped lacerating his right eyebrow. No recent travel or sick contacts. PAST MEDICAL HISTORY: Denies past medical history SURGICAL HISTORY: Denies ALLERGIES: No known drug allergies REVIEW OF SYSTEMS General/Constitutional: Denies fever or chills. Denies weakness, weight change. HEENT: Denies change in vision. Denies ear pain or discharge. Denies sore throat. Cardiovascular: Denies chest pain or shortness of breath. Respiratory: Denies cough, wheezing, or hemoptysis. Gastrointestinal: Denies nausea, vomiting, diarrhea or constipation. Denies rectal bleeding. Genitourinary: Denies dysuria, frequency, or change in urination. Musculoskeletal: Denies joint or muscle swelling or pain. Denies neck or back pain. Skin and breasts: see HPI Neurologic: Denies headache, vertigo, loss of consciousness, or loss of sensation. Psychiatric: Denies depression or anxiety. Endocrine: Denies increased thirst. Denies abnormal weight change. Hematologic/Lymphatic: Denies anemia, easy bleeding, or history of blood clots. Allergic/Immunologic: Denies hives or skin allergy. Denies latex allergy. PHYSICAL EXAM General Appearance: Well-appearing, appropriately dressed. No apparent distress , no intoxication. HEENT: EOMI, PERRLA, normal ENT inspection, normal voice, TMs normal, pharynx normal. No conjunctival pallor. No photophobia, scleral icterus. Neck: Supple. Trachea midline. No tenderness, rigidity, carotid bruit, stridor , lymphadenopathy, or thyromegaly. Respiratory/Chest: Lungs CTAB. No shortness of breath, chest tenderness, respiratory distress, accessory muscle use. No crackles, rales, rhonchi, stridor , wheezing, dullness Cardiovascular: RRR. S1, S2. No JVD, murmur, bradycardia, tachycardia. Vascular Pulses: Dorsalis-Pedis (R): 2+, Dorsalis-Pedis (L): 2+ Gastrointestinal/Abdominal: Normal bowel sounds. Abdomen soft, non-distended. No tenderness or rebound tenderness. No organomegaly, pulsatile mass, guarding, hernia, hepatomegaly, splenomegaly. Lymphatic: No adenopathy, tenderness. Musculoskeletal/Extremities: Normal inspection. FROM of all extremities, normal capillary refill. Pelvis Stable. No CVA tenderness. No tenderness to extremities, pedal edema, swelling, erythema or deformity. Integumentary: 1.5cm superficial linear laceration inferior to right lateral eyebrow. Neurologic: boiler engineer II-XII intact. Fully oriented, alert. Appropriate mood/affect. Motor strength 5/5. No appreciable EOM palsy, facial droop or sensory deficit. Past History - Past Medical History Allergies/Adverse Reactions: Allergies Allergy/AdvReac Type Severity Reaction Status Date / Time No Known Allergies Allergy Verified 10/11/18 19:36 Home Medications: Ambulatory Orders NK [No Known Home Medication] 10/11/18 Asthma: No COPD: No DVT: No Diabetes: No HTN: No Hypercholesterolemia: No Liver Disease: Yes Psychiatric Problems: Yes (anxiety and panic attacks.) - Suicide/Smoking/Psychosocial Hx Smoking Status: No Smoking History: Never smoked Have you smoked in the past 12 months: No Number of Cigarettes Smoked Daily: 3 If you are a former smoker, when did you quit?: 3 WEEKS AGO Information on smoking cessation initiated: No 'Breaking Loose' booklet given: 04/14/18 Hx Alcohol Use: No Drug/Substance Use Hx: No Substance Use Type: None *Physical Exam - Vital Signs Last Vital Signs Temp Pulse Resp BP Pulse Ox 98.0 F 82 16 143/80 100 10/11/18 19:34 10/11/18 19:34 10/11/18 19:34 10/11/18 19:34 10/11/18 19:34 Moderate Sedation - Procedure Monitoring Vital Signs: Procedure Monitoring Vital Signs Temperature 98.0 F 10/11/18 19:34 Pulse Rate 82 10/11/18 19:34 Respiratory Rate 16 10/11/18 19:34 Blood Pressure 143/80 10/11/18 19:34 O2 Sat by Pulse Oximetry (%) 100 10/11/18 19:34 Procedures - Consent Consent obtained: Verbal, From Patient - Laceration/Wound Repair Right Anterior Face Wound Length: to 2.5 cm Wound Explored: clean Wound's Depth, Shape: superficial Irrigated w/ Saline: Yes Betadine Prep: Yes Anesthesia: 2% Lidocaine Amount of Anesthetic (ccs): 3 Wound Debrided: minimal Wound Repaired With: Sutures Suture Size/Type: 5:0, nylon Number of Sutures: 4 Layer Closure: No Sterile Dressing Applied: Yes Splint Applied: No Sling Applied: No Progress: 10/11/18 21:05 pt tolerated well. Medical Decision Making - Medical Decision Making 10/11/18 21:03 A/P: 32-year-old male with laceration to right eyebrow Boostrix Laceration repair-see procedure note for details Discharge home 10/12/18 11:15 *DC/Admit/Observation/Transfer Diagnosis at time of Disposition: Facial laceration Qualifiers: Encounter type: initial encounter Qualified Code(s): S01.81XA - Laceration without foreign body of other part of head, initial encounter - Discharge Dispostion Disposition: HOME Condition at time of disposition: Stable Decision to Admit order: No - Referrals - Patient Instructions Additional Instructions: Keep wound clean and dry Avoid strenuous activity/exercise to create a hot or sweaty environment until sutures are removed Reapply bacitracin ointment 2 times a day until sutures are removed Return to emergency Department or private physician in 5-7 days for suture removal May use Tylenol or Motrin for pain relief Return immediately to emergency department for redness, swelling, pain, or signs of infection Your tetanus has been updated today. - Post Discharge Activity
== END 2018-10-11 21:13 | disposition home or self-care (01) ==
LOC: JERFT 19:19
PROC: 0HQ1XZZ Repair Face Skin, External Approach (ICD-10-PCS; principal; 2018-10-11)
PROC: 3E0234Z Introduction of Serum, Toxoid and Vaccine into Muscle, Percutaneous Approach (ICD-10-PCS; 2018-10-11)
DX: S01.111A Laceration without foreign body of right eyelid and periocular area, initial encounter (principal); W22.8XXA Striking against or struck by other objects, initial encounter; Y93.H3 Activity, building and construction; Y92.61 Building [any] under construction as the place of occurrence of the external cause; Y99.0 Civilian activity done for income or pay
CPT/HCPCS: 12011; 90471; 90715; 99281-25

== ENCOUNTER 2018-10-18 19:06 | Emergency (ER) | payer OTHER ==
[2018-10-18 19:08] VITALS: BP 134/77; PULSE 71; TEMP 98; BMI 24.5
--- NOTE | 2018-10-18 19:38 | PDOC ---
Suture Removal/Wound Check HPI - History of Present Illness Chief Complaint: Suture/Staple Removal(Here) Stated Complaint: REMOVAL OF STITCHES Time Seen by Provider: 10/18/18 19:22 History Source: Yes: Patient, Old Records Exam Limitations: Yes: No Limitations Treated at: [facility] Date of Last ED visit: 10/11/18 - Previous ED Treatment Type of procedure performed on last visit: Yes: Laceration Repair Tetanus Immunization: Yes: Given at last ED visit Past History - Past Medical History Allergies/Adverse Reactions: Allergies Allergy/AdvReac Type Severity Reaction Status Date / Time No Known Allergies Allergy Verified 10/18/18 19:08 Home Medications: Ambulatory Orders NK [No Known Home Medication] 10/11/18 Asthma: No COPD: No DVT: No Diabetes: No HTN: No Hypercholesterolemia: No Liver Disease: Yes Psychiatric Problems: Yes (anxiety and panic attacks.) - Immunization History Immunization Up to Date: Yes - Suicide/Smoking/Psychosocial Hx Smoking Status: No Smoking History: Never smoked Have you smoked in the past 12 months: No Number of Cigarettes Smoked Daily: 3 If you are a former smoker, when did you quit?: 3 WEEKS AGO 'Breaking Loose' booklet given: 04/14/18 Hx Alcohol Use: No Drug/Substance Use Hx: No Substance Use Type: None Suture Removal/Wound Check PE - Physical Exam Laceration/Wound Check Symptoms: reports: None Current Severity Level: None Maximum Severity Level: None Pain Localization: None Location of Laceration/Wound: right: Eye (eyebrow) Pain Radiation: None *Review of Systems - Review of Systems Able to Perform ROS?: Yes All Other Systems: Reviewed and Negative *Physical Exam - Vital Signs Last Vital Signs Temp Pulse Resp BP Pulse Ox 98 F 71 18 134/77 98 10/18/18 19:07 10/18/18 19:07 10/18/18 19:07 10/18/18 19:07 10/18/18 19:07 - Physical Exam Integumentary: positive: Other (Right eyebrow laceration repair wound with granulation tissue present. No discharge, drainage, erythema present. 4 simple interrupted sutures in place.) Moderate Sedation - Procedure Monitoring Vital Signs: Procedure Monitoring Vital Signs Temperature 98 F 10/18/18 19:07 Pulse Rate 71 10/18/18 19:07 Respiratory Rate 18 10/18/18 19:07 Blood Pressure 134/77 10/18/18 19:07 O2 Sat by Pulse Oximetry (%) 98 10/18/18 19:07 Medical Decision Making - Medical Decision Making 10/18/18 19:36 A/P: 32-year-old man here for suture removal Right eyebrow wound noted. Granulation tissue present. No signs of infection noted 4 simple interrupted sutures removed without incident Discharge home *DC/Admit/Observation/Transfer Diagnosis at time of Disposition: Encounter for removal of sutures - Discharge Dispostion Disposition: HOME Condition at time of disposition: Stable Decision to Admit order: No - Referrals - Patient Instructions Printed Discharge Instructions: DI for Suture Removal Additional Instructions: Return to emergency department for any concerns. - Post Discharge Activity
== END 2018-10-18 19:44 | disposition home or self-care (01) ==
LOC: JERFT 19:06
DX: Z48.817 Encounter for surgical aftercare following surgery on the skin and subcutaneous tissue (principal); Z48.02 Encounter for removal of sutures
CPT/HCPCS: 99281-25

== ENCOUNTER 2021-11-13 19:38 | Emergency (ER) | payer OTHER ==
[2021-11-13 19:50] VITALS: BP 128/80; PULSE 84; TEMP 98.5; BMI 28.5
[2021-11-13] MEDS ORDERED: IBUPROFEN 600 MG TABLET (FP) PO ONE (20:24)
== END 2021-11-13 21:00 | disposition home or self-care (01) ==
LOC: JERFT 19:38
DX: M25.571 Pain in right ankle and joints of right foot (principal)
CPT/HCPCS: 73610-TC-RT-FY; 73630-TC-RT-FY; 99283-25

== ENCOUNTER 2022-08-21 13:10 | Emergency (ER) | payer OTHER ==
[2022-08-21 13:36] VITALS: BP 125/78; PULSE 90; RESP 18; TEMP 98.6; BMI 27.8
[2022-08-21] MEDS ORDERED: IBUPROFEN 600 MG TABLET (FP) PO ONE ×2 (14:38→15:00)
[2022-08-21] MEDS ORDERED: LIDOCAINE 5% TOPICAL PATCH TP ONE (14:40)
[2022-08-21] MEDS ORDERED: LIDOCAINE 5% TOPICAL PATCH ONE (15:00)
[2022-08-21] MEDS ORDERED: LIDOCAINE PATCH REMOVAL MC SCH (22:00)
== END 2022-08-21 17:03 | disposition home or self-care (01) ==
LOC: JERFT 13:10
DX: R07.89 Other chest pain (principal); M25.512 Pain in left shoulder
CPT/HCPCS: 71101-TC-LT-FY; 73030-TC-LT-FY; 99284-25